=== PATIENT | female | born 1960 | race American Indian/Alaskan Native ===

== ENCOUNTER 2016-08-04 09:50 | Emergency (ER) | payer MEDICAID ==
[~2016-08-04] VITALS: Ht 165.1 cm; Wt 117.9 kg
[~2016-08-04 09:50] MED LIST: AMOX1TAB64 PO; APIX5TAB PO; ASPI-496 PO; ASPI-515 PO; CALC667C PO; CARV6.252 PO; CEFD300C2 PO; CEPH-375 PO; CLON0.2T PO; ERGO500017 PO; FELO2.5T PO; FERR325T20 PO; FURO-92 PO; FURO20TA3 PO; GABA300C10 PO; HYDR-3138 PO; HYDR-3144 PO; HYDR25TA6 PO; INSU100V10 SC; INSU100V13 SC; LINA5TAB PO; LINAGLIPTIN; LOSA25TA5 PO; METO5TAB5 PO; METR500T PO; MULT-208 PO; OMEP-110 PO; ONDA4TAB13 PO; OXYB5TAB7 PO; SIMV20TA3 PO; TRAZ50TA18 PO; UNKOWN; calcium PO; gabapentin PO
[2016-08-04] MEDS ORDERED: DEXAMETHASONE 4 MG/ML, 1ML IM ONE (11:30)
[2016-08-04] MEDS ORDERED: HYDROmorphone 1 MG/ML, 1ML IM ONE (11:30)
[2016-08-04] MEDS ORDERED: HYDROmorphone 2 MG/ML, 1ML ONE (11:42)
[2016-08-04] MEDS ORDERED: DEXAMETHASONE 4 MG/ML, 5ML ONE (11:42)
[2016-08-04 11:48] VITALS: BP 123/45
[2016-08-06] MEDS ORDERED: CARV12.52 PO (08:34)
[2016-08-06] MEDS ORDERED: SIMV20TA3 PO (08:34)
[2016-08-06] MEDS ORDERED: MULT-257 PO (08:34)
[2016-08-06] MEDS ORDERED: LINA5TAB PO (08:34)
[2016-08-06] MEDS ORDERED: POTA20PA8 PO (08:34)
[2016-08-06] MEDS ORDERED: ASPI-496 PO (08:34)
[2016-08-06] MEDS ORDERED: FERR325T20 PO (08:34)
[2016-08-06] MEDS ORDERED: GABA600T2 PO (08:34)
[2016-08-06] MEDS ORDERED: OMEP-110 PO (08:34)
[2016-08-06] MEDS ORDERED: ERGO500017 PO (08:34)
[2016-08-06] MEDS ORDERED: HYDR25TA6 PO (08:34)
[2016-08-06] MEDS ORDERED: CALC667C PO (08:34)
[2016-08-06] MEDS ORDERED: ONDA-39 PO (08:34)
[2016-08-06] MEDS ORDERED: TRAZ50TA18 PO (08:34)
[2016-08-06] MEDS ORDERED: HYDR-3138 PO (08:34)
== END 2016-08-04 12:55 | disposition home or self-care (01) ==
LOC: ED 12:18
DX: M25.511 Pain in right shoulder (principal); I48.92 Unspecified atrial flutter; I48.91 Unspecified atrial fibrillation; E66.9 Obesity, unspecified; I13.0 Hypertensive heart and chronic kidney disease with heart failure and stage 1 through stage 4 chronic kidney disease, or unspecified chronic kidney disease; N18.9 Chronic kidney disease, unspecified; K29.70 Gastritis, unspecified, without bleeding; E11.9 Type 2 diabetes mellitus without complications
CPT/HCPCS: 73030; 93005; 96372; 99284; J1100; J1170

== ENCOUNTER 2017-02-22 14:39 | Emergency (ER) | payer MEDICAID ==
[~2017-02-22] VITALS: Ht 165.1 cm; Wt 127.6 kg
[~2017-02-22 14:39] MED LIST changes: +CARV12.52 PO; -CEFD300C2 PO; +CEFD300C37 PO; +FERR325T18 PO; -FERR325T20 PO; +GABA600T2 PO; -HYDR-3138 PO; -HYDR-3144 PO; +HYDR-3237 PO; +HYDR-3245 PO; -INSU100V10 SC; +INSU100V11 SC; +MULT-257 PO; +ONDA4TAB12 PO; +POTA20PA25 PO
[2017-02-22 15:49] LABS: PATH.CAST-FLAG NOT PRESENT; SPERM-FLAG NOT PRESENT; SRC-FLAG NOT PRESENT; XTAL-FLAG NOT PRESENT; YLC-FLAG NOT PRESENT
[2017-02-22 15:58] LABS: HEMATOCRIT 31.2 % (34.6-47.8); HEMOGLOBIN 10.6 g/dL (11.7-16.4); WHITE BLOOD COUNT 7.4 x10^3/uL (3.4-10)
[2017-02-22 16:05] LABS: BLOOD UREA NITROGEN 22 mg/dL (7-18)
[2017-02-22 16:55] VITALS: BP 165/58
== END 2017-02-22 16:57 | disposition home or self-care (01) ==
LOC: ED 16:19
DX: R51 Headache (principal); E11.22 Type 2 diabetes mellitus with diabetic chronic kidney disease; I13.0 Hypertensive heart and chronic kidney disease with heart failure and stage 1 through stage 4 chronic kidney disease, or unspecified chronic kidney disease; I48.91 Unspecified atrial fibrillation; N18.4 Chronic kidney disease, stage 4 (severe); I50.9 Heart failure, unspecified; Z99.2 Dependence on renal dialysis
CPT/HCPCS: 36415; 70450; 80048; 81001; 82040; 83735; 85025; 93005; 99285

== ENCOUNTER 2017-04-11 21:25 | Inpatient (IN) | payer MEDICAID ==
[~2017-04-11] VITALS: Ht 165.1 cm; Wt 129.7 kg
[2017-04-11] MEDS ORDERED: ASPIRIN 81 MG TABLET CHEW ONE (21:56)
[2017-04-11] MEDS ORDERED: ASPIRIN 81 MG TABLET CHEW PO ONE (22:00)
[2017-04-11 22:24] LABS: HEMATOCRIT 28.2 % (34.6-47.8); HEMOGLOBIN 9.8 g/dL (11.7-16.4); WHITE BLOOD COUNT 4.9 x10^3/uL (3.4-10)
[2017-04-11 22:31] LABS: BLOOD UREA NITROGEN 44 mg/dL (7-18)
[2017-04-11 22:40] LABS: IS PT STATUS REG ER OR PRE ER? YES
[2017-04-11] MEDS ORDERED: OMNIPAQUE 350 MG/ML, 100ML BOTTLE ONE (23:39)
[2017-04-12] VITALS (11 sets, daily range): BP systolic 108–174; BP diastolic 60–83
[2017-04-12] MEDS ORDERED: ONDANSETRON 2MG/ML, 2ML IVPush PRN
[2017-04-12] MEDS ORDERED: MORPHINE SULFATE 4 MG/ML, 1ML IVPush PRN
[2017-04-12] MEDS ORDERED: ERGOCALCIFEROL 50,000 UNIT CAPSULE PO SCH (00:30)
[2017-04-12] MEDS ORDERED: DOCUSATE 100 MG CAPSULE PO PRN ×2 (00:30→20:00)
[2017-04-12] MEDS ORDERED: ACETAMINOPHEN 325 MG TABLET PO PRN (00:30)
[2017-04-12] MEDS ORDERED: hydrALAzine 20 MG/ML, 1ML IVPush PRN ×2 (00:30→20:00)
[2017-04-12] MEDS ORDERED: HYDROmorphone 1 MG/ML, 1ML ONE (00:37)
[2017-04-12] MEDS ORDERED: HYDROmorphone 2 MG/ML, 1ML IVPush STA (01:00)
[2017-04-12] MEDS: TRAZODONE 50MG TABLET PO SCH ×2 (02:39→20:52)
[2017-04-12] MEDS: HEPARIN 5,000 UNITS/ML, 1ML SQ SCH ×3 (02:39→16:07)
[2017-04-12] MEDS: INSULIN ASPART 100 UNITS/ML, PEN SQ-INSULIN SCH ×5 (03:34→20:56)
[2017-04-12 05:13] LABS: IS PT STATUS REG ER OR PRE ER? NO
[2017-04-12] MEDS: GABAPENTIN 300 MG CAPSULE PO PRN ×2 (06:21→16:48)
[2017-04-12] MEDS: NITROGLYCERIN 0.4 MG BOTTLE (25 TABS) SL PRN ×3 (06:45→06:57)
[2017-04-12] MEDS ORDERED: REGADENOSON 0.4 MG/5 ML SYRINGE ONE (07:56)
[2017-04-12] MEDS ORDERED: TEMPLATE NON-FORMULARY MED. (Linagliptin** (Tradjenta**) 5 MG) HOMEMEDPO SCH (09:00)
[2017-04-12] MEDS ORDERED: POTASSIUM CHLORIDE 20 MEQ PACKET PO SCH (09:00)
[2017-04-12] MEDS ORDERED: MULTIVITAMIN 1 TABLET PO SCH (09:00)
[2017-04-12] MEDS ORDERED: HYDROCHLOROTHIAZIDE 25 MG TABLET PO SCH (09:00)
[2017-04-12] MEDS ORDERED: ASPIRIN 81 MG TABLET EC PO SCH (09:00)
[2017-04-12] MEDS: CALCIUM ACETATE 667 MG CAPSULE PO SCH ×3 (09:11→16:48)
[2017-04-12] MEDS: CARVEDILOL 12.5 MG TABLET PO SCH ×2 (09:11→20:52)
[2017-04-12] MEDS: FERROUS SULFATE 325 MG TABLET PO SCH ×2 (09:12→16:47)
[2017-04-12 12:38] LABS: IS PT STATUS REG ER OR PRE ER? NO
== END 2017-04-12 23:03 | disposition home or self-care (01) | DRG 313 ==
LOC: ED 21:37 → EDIP 04-12 00:06 → 5SO 04-12 01:10
PROVIDERS: ADMIT Family Medicine; ATTEND Family Medicine
PROC: 5A1D70Z Performance of Urinary Filtration, Intermittent, Less than 6 Hours Per Day (ICD-10-PCS; principal; 2017-04-12)
DX: R07.89 Other chest pain (principal); I25.10 Atherosclerotic heart disease of native coronary artery without angina pectoris; I13.2 Hypertensive heart and chronic kidney disease with heart failure and with stage 5 chronic kidney disease, or end stage renal disease; D68.69 Other thrombophilia; E11.21 Type 2 diabetes mellitus with diabetic nephropathy; E11.42 Type 2 diabetes mellitus with diabetic polyneuropathy; N18.6 End stage renal disease; E11.22 Type 2 diabetes mellitus with diabetic chronic kidney disease; E87.1 Hypo-osmolality and hyponatremia; I50.32 Chronic diastolic (congestive) heart failure; Z68.41 Body mass index [BMI] 40.0-44.9, adult; I16.0 Hypertensive urgency; D50.9 Iron deficiency anemia, unspecified; D63.8 Anemia in other chronic diseases classified elsewhere; E11.65 Type 2 diabetes mellitus with hyperglycemia; E66.01 Morbid (severe) obesity due to excess calories; I27.20 Pulmonary hypertension, unspecified; I48.0 Paroxysmal atrial fibrillation; I87.8 Other specified disorders of veins; K76.0 Fatty (change of) liver, not elsewhere classified; I25.2 Old myocardial infarction; Z79.4 Long term (current) use of insulin; Z79.82 Long term (current) use of aspirin; Z83.3 Family history of diabetes mellitus; Z86.73 Personal history of transient ischemic attack (TIA), and cerebral infarction without residual deficits; Z95.5 Presence of coronary angioplasty implant and graft; Z99.2 Dependence on renal dialysis; Z99.3 Dependence on wheelchair; Z90.49 Acquired absence of other specified parts of digestive tract
CPT/HCPCS: 36415; 71010; 71275; 78452; 80048; 82040; 82800; 82947; 82962; 83036; 83880; 84484; 85025; 85379; 85610; 93005; 93017; 99285; C8929; J1644; J1815; J2785; Q9967; A9502; C9898

== ENCOUNTER → 2017-04-28 | Outpatient (CLI) | payer MEDICAID | END | disposition home or self-care (01) | LOC: RAD 16:08 | PROVIDERS: ATTEND Surgery | DX: I51.7 Cardiomegaly (principal) | CPT/HCPCS: 71020 ==

== ENCOUNTER 2017-05-30 23:38 | Emergency (ER) | payer MEDICAID ==
[~2017-05-30] VITALS: Ht 165.1 cm; Wt 124.0 kg
[2017-05-31 00:15] LABS: RAPID INFLUENZA A POSITIVE (Negative); RAPID INFLUENZA B Negative (Negative)
[2017-05-31 00:20] LABS: BASOPHILS # (AUTO) 0.01 x10^3/uL (0-0.1); BASOPHILS % (AUTO) 0 % (0-1); EOSINOPHILS # (AUTO) 0.65 x10^3/uL (0-0.4); EOSINOPHILS % (AUTO) 12 % (1-7); LYMPHOCYTES # (AUTO) 0.84 x10^3/uL (1-3.4); LYMPHOCYTES % (AUTO) 16 % (22-44); MD NO; MEAN CORPUSCULAR HGB CONC 33.3 g/dL (32.4-35.8); MEAN CORPUSCULAR VOLUME 93.1 fL (80-100); MEAN PLATELET VOLUME 9.2 fL (7.4-10.4); MONOCYTES # (AUTO) 0.51 x10^3/uL (0.2-0.8); MONOCYTES % (AUTO) 10 % (2-9); NEUTROPHILS # (AUTO) 3.42 x10^3/uL (1.8-6.8); NEUTROPHILS % (AUTO) 63 % (42-75); PLATELET COUNT 165 x10^3/uL (130-400); RED BLOOD COUNT 3.59 x10^6/uL (3.82-5.3); RED CELL DISTRIBUTION WIDTH 16.4 % (9.6-15.2)
[2017-05-31 00:30] LABS: ALBUMIN 3.1 g/dL (3.4-5.0); ANION GAP 9 mmol/L (5-15); CALCIUM 8.4 mg/dL (8.5-10.1); CHLORIDE 95 mmol/L (98-107); CREATININE 5.69 mg/dL (0.55-1.02)
[2017-05-31 00:33] LABS: TROPONIN I < 0.015 ng/mL (0.000-0.045)
[2017-05-31] MEDS ORDERED: ACETAMINOPHEN 500 MG TABLET ONE (00:56)
[2017-05-31] MEDS ORDERED: ACETAMINOPHEN 500 MG TABLET PO ONE (01:00)
[2017-05-31 01:02] VITALS: BP 168/92
== END 2017-05-31 01:04 | disposition home or self-care (01) ==
LOC: ED 23:59
DX: J09.X2 Influenza due to identified novel influenza A virus with other respiratory manifestations (principal); E11.65 Type 2 diabetes mellitus with hyperglycemia; I48.91 Unspecified atrial fibrillation; I50.9 Heart failure, unspecified; E66.9 Obesity, unspecified; E87.6 Hypokalemia; E11.22 Type 2 diabetes mellitus with diabetic chronic kidney disease; I12.0 Hypertensive chronic kidney disease with stage 5 chronic kidney disease or end stage renal disease; N18.6 End stage renal disease; N17.9 Acute kidney failure, unspecified; Z99.2 Dependence on renal dialysis; Z90.49 Acquired absence of other specified parts of digestive tract
CPT/HCPCS: 36415; 71046; 80048; 82040; 84484; 85025; 87400; 93005; 99285

== ENCOUNTER 2017-06-19 12:31 | Emergency (ER) | payer MEDICAID ==
[~2017-06-19] VITALS: Ht 167.6 cm; Wt 125.0 kg
[2017-06-19 12:32] VITALS: BP 133/78
[2017-06-19] MEDS ORDERED: ONDANSETRON ODT 4 MG PO ONE (13:00)
[2017-06-19] MEDS ORDERED: HYDROmorphone 1 MG/ML, 1ML IM ONE (13:00)
[2017-06-19 13:24] LABS: MICROSCOPIC AUTO
[2017-06-19] MEDS ORDERED: HYDROmorphone 1 MG/ML, 1ML ONE (13:28)
[2017-06-19] MEDS ORDERED: ONDANSETRON ODT 4 MG ONE (13:28)
[2017-06-19 13:29] LABS: CULTURE INDICATED? YES
[2017-06-19 13:41] LABS: BASOPHILS # (AUTO) 0.02 x10^3/uL (0-0.1); BASOPHILS % (AUTO) 0 % (0-1); EOSINOPHILS # (AUTO) 0.38 x10^3/uL (0-0.4); EOSINOPHILS % (AUTO) 6 % (1-7); LYMPHOCYTES # (AUTO) 0.72 x10^3/uL (1-3.4); LYMPHOCYTES % (AUTO) 11 % (22-44); MD NO; MEAN CORPUSCULAR HEMOGLOBIN 30.5 pg (27.0-34.8); MEAN CORPUSCULAR HGB CONC 33.1 g/dL (32.4-35.8); MEAN CORPUSCULAR VOLUME 92.2 fL (80-100); MEAN PLATELET VOLUME 10.6 fL (7.4-10.4); MONOCYTES # (AUTO) 0.43 x10^3/uL (0.2-0.8); MONOCYTES % (AUTO) 7 % (2-9); NEUTROPHILS # (AUTO) 4.74 x10^3/uL (1.8-6.8); NEUTROPHILS % (AUTO) 75 % (42-75); PLATELET COUNT 137 x10^3/uL (130-400); RED BLOOD COUNT 3.32 x10^6/uL (3.82-5.3); RED CELL DISTRIBUTION WIDTH 15.2 % (9.6-15.2)
[2017-06-19 13:48] LABS: ANION GAP 12 mmol/L (5-15); CHLORIDE 93 mmol/L (98-107); CREATININE 7.25 mg/dL (0.55-1.02)
[2017-06-19] MEDS ORDERED: HYDROmorphone 2 MG/ML, 1ML ONE (15:40)
== END 2017-06-19 15:09 | disposition home or self-care (01) ==
LOC: ED 14:58
DX: E11.22 Type 2 diabetes mellitus with diabetic chronic kidney disease (principal); I13.0 Hypertensive heart and chronic kidney disease with heart failure and stage 1 through stage 4 chronic kidney disease, or unspecified chronic kidney disease; N18.9 Chronic kidney disease, unspecified; I50.9 Heart failure, unspecified; I48.91 Unspecified atrial fibrillation; E66.01 Morbid (severe) obesity due to excess calories; N30.00 Acute cystitis without hematuria; Z68.41 Body mass index [BMI] 40.0-44.9, adult
CPT/HCPCS: 36415; 72110; 80048; 81001; 82040; 85025; 87086; 96372; 99285; J1170; Q0162

== ENCOUNTER 2017-07-23 15:26 | Inpatient (IN) | payer MEDICAID ==
[~2017-07-23] VITALS: Ht 165.1 cm; Wt 141.0 kg
[2017-07-23 16:13] LABS: BASOPHILS # (AUTO) 0.01 x10^3/uL (0-0.1); BASOPHILS % (AUTO) 0 % (0-1); EOSINOPHILS # (AUTO) 0.04 x10^3/uL (0-0.4); EOSINOPHILS % (AUTO) 1 % (1-7); LYMPHOCYTES # (AUTO) 0.68 x10^3/uL (1-3.4); LYMPHOCYTES % (AUTO) 11 % (22-44); MD NO; MEAN CORPUSCULAR HEMOGLOBIN 30.1 pg (27.0-34.8); MEAN CORPUSCULAR HGB CONC 33.4 g/dL (32.4-35.8); MEAN CORPUSCULAR VOLUME 90.2 fL (80-100); MEAN PLATELET VOLUME 9.9 fL (7.4-10.4); MONOCYTES # (AUTO) 0.46 x10^3/uL (0.2-0.8); MONOCYTES % (AUTO) 7 % (2-9); NEUTROPHILS # (AUTO) 5.28 x10^3/uL (1.8-6.8); NEUTROPHILS % (AUTO) 82 % (42-75); PLATELET COUNT 147 x10^3/uL (130-400); RED BLOOD COUNT 3.31 x10^6/uL (3.82-5.3)
[2017-07-23 16:23] LABS: INTERNATIONAL NORMALIZED RATIO 1.03 (0.93-1.1); PROTHROMBIN TIME 10.7 Seconds (9.6-11.5)
[2017-07-23 16:33] LABS: ANION GAP 13 mmol/L (5-15); CALCIUM 7.8 mg/dL (8.5-10.1); CHLORIDE 80 mmol/L (98-107)
[2017-07-23] MEDS ORDERED: SODIUM CHLORIDE 0.9% 1,000ML IVBOLUS ONE (17:30)
[2017-07-23] MEDS ORDERED: INSULIN REGULAR 100 UNITS/ML, 3ML VIAL IV ONE (17:30)
[2017-07-23] MEDS ORDERED: INSULIN REGULAR 100 UNITS/ML, 3ML VIAL ONE ×2 (17:36→19:15)
[2017-07-23 18:02] LABS: ACETONE, SERUM Trace (10mg/dL) mg/dL (Negative)
[2017-07-23 18:24] LABS: MICROSCOPIC INDICATED
[2017-07-23 18:32] LABS: CULTURE INDICATED? NO
[2017-07-23] MEDS ORDERED: MORPHINE SULFATE 4 MG/ML, 1ML ONE (18:53)
[2017-07-23] MEDS: GABAPENTIN 300 MG CAPSULE PO SCH ×2 (19:00→21:55)
[2017-07-23] MEDS ORDERED: HYDROcodone/APAP 10/325 MG TABLET ONE (19:02)
[2017-07-23] MEDS ORDERED: HYDROcodone/APAP 10/325 MG TABLET PO ONE (19:30)
[2017-07-23] MEDS ORDERED: INSULIN REGULAR 100 UNITS/ML, 3ML VIAL IVPush ONE (19:30)
[2017-07-23] MEDS ORDERED: SODIUM CHLORIDE 0.9% 1,000 ML IV SCH (20:31)
[2017-07-23] MEDS ORDERED: DOCUSATE 100 MG CAPSULE PO PRN (21:00)
[2017-07-23] MEDS ORDERED: ONDANSETRON ODT 4 MG PO PRN (21:00)
[2017-07-23] MEDS ORDERED: hydrALAzine 20 MG/ML, 1ML IVPush PRN (21:00)
[2017-07-23] MEDS ORDERED: INSULIN LISPRO 100 UNITS/ML, PEN SQ-INSULIN SCH (21:30)
[2017-07-23 21:49] LABS: ANION GAP 13 mmol/L (5-15); CALCIUM 7.8 mg/dL (8.5-10.1); CHLORIDE 85 mmol/L (98-107); CREATININE 7.72 mg/dL (0.55-1.02)
[2017-07-23 21:51] VITALS: BP 125/57
[2017-07-23 21:53] LABS: TROPONIN I < 0.015 ng/mL (0.000-0.045)
[2017-07-23] MEDS: FERROUS SULFATE 325 MG TABLET PO SCH (21:55)
[2017-07-23] MEDS: CARVEDILOL 12.5 MG TABLET PO SCH (21:55)
[2017-07-23] MEDS: TRAZODONE 50MG TABLET PO SCH (21:55)
[2017-07-23 22:04] VITALS: BP 125/57
[2017-07-23] MEDS ORDERED: INSULIN LISPRO 100 UNITS/ML, PEN SQ-INSULIN ONE (23:00)
[2017-07-24 01:47] VITALS: BP 128/62
[2017-07-24] MEDS: INSULIN LISPRO 100 UNITS/ML, PEN SQ-INSULIN SCH ×6 (02:19→23:00)
[2017-07-24 04:09] LABS: ANION GAP 11 mmol/L (5-15); CALCIUM 7.7 mg/dL (8.5-10.1); CHLORIDE 85 mmol/L (98-107); CREATININE 7.87 mg/dL (0.55-1.02); TROPONIN I < 0.015 ng/mL (0.000-0.045)
[2017-07-24] MEDS: HYDROcodone/APAP 10/325 MG TABLET PO PRN ×2 (04:58→20:50)
[2017-07-24 06:47] VITALS: BP 91/55
[2017-07-24] MEDS: CARVEDILOL 12.5 MG TABLET PO SCH ×2 (08:14→20:50)
[2017-07-24] MEDS: FERROUS SULFATE 325 MG TABLET PO SCH ×2 (08:30→17:05)
[2017-07-24] MEDS: GABAPENTIN 300 MG CAPSULE PO SCH ×3 (08:31→20:50)
[2017-07-24 09:12] LABS: ANION GAP 11 mmol/L (5-15); CALCIUM 7.8 mg/dL (8.5-10.1); CHLORIDE 86 mmol/L (98-107)
[2017-07-24 12:30] VITALS: BP 106/59
[2017-07-24 13:55] LABS: ANION GAP 9 mmol/L (5-15); CHLORIDE 88 mmol/L (98-107)
[2017-07-24 13:56] LABS: CREATININE 5.11 mg/dL (0.55-1.02)
[2017-07-24 19:55] VITALS: BP 115/56
[2017-07-24] MEDS: TRAZODONE 50MG TABLET PO SCH (20:50)
[2017-07-25 02:00] VITALS: BP 116/68
[2017-07-25] MEDS ORDERED: INSULIN LISPRO 100 UNITS/ML, PEN SQ-INSULIN SCH (03:00)
[2017-07-25] MEDS: INSULIN LISPRO 100 UNITS/ML, PEN SQ-INSULIN SCH ×6 (03:59→23:00)
[2017-07-25 05:36] LABS: CHLORIDE 87 mmol/L (98-107)
[2017-07-25 05:38] LABS: BASOPHILS # (AUTO) 0.02 x10^3/uL (0-0.1); BASOPHILS % (AUTO) 0 % (0-1); EOSINOPHILS # (AUTO) 0.27 x10^3/uL (0-0.4); EOSINOPHILS % (AUTO) 5 % (1-7); LYMPHOCYTES # (AUTO) 1.11 x10^3/uL (1-3.4); LYMPHOCYTES % (AUTO) 21 % (22-44); MD NO; MEAN CORPUSCULAR HEMOGLOBIN 30.8 pg (27.0-34.8); MEAN CORPUSCULAR HGB CONC 34.2 g/dL (32.4-35.8); MEAN PLATELET VOLUME 9.8 fL (7.4-10.4); MONOCYTES # (AUTO) 0.51 x10^3/uL (0.2-0.8); MONOCYTES % (AUTO) 10 % (2-9); NEUTROPHILS # (AUTO) 3.31 x10^3/uL (1.8-6.8); NEUTROPHILS % (AUTO) 64 % (42-75); PLATELET COUNT 135 x10^3/uL (130-400); RED BLOOD COUNT 3.15 x10^6/uL (3.82-5.3); RED CELL DISTRIBUTION WIDTH 15.6 % (9.6-15.2)
[2017-07-25 05:42] LABS: ALBUMIN 2.6 g/dL (3.4-5.0); ALKALINE PHOSPHATASE 172 U/L (45-117); ANION GAP 11 mmol/L (5-15); BILIRUBIN,TOTAL 0.8 mg/dL (0.2-1.0); CALCIUM 7.7 mg/dL (8.5-10.1); CREATININE 6.78 mg/dL (0.55-1.02); TOTAL PROTEIN 7.6 g/dL (6.4-8.2)
[2017-07-25 05:47] LABS: ALANINE AMINOTRANSFERASE < 6 U/L (12-78)
[2017-07-25] MEDS: HEPARIN 5,000 UNITS/ML, 1ML SQ SCH ×2 (08:29→20:24)
[2017-07-25] MEDS: FERROUS SULFATE 325 MG TABLET PO SCH ×2 (08:29→18:13)
[2017-07-25] MEDS: GABAPENTIN 300 MG CAPSULE PO SCH ×3 (08:29→20:24)
[2017-07-25 09:30] VITALS: BP 132/80
[2017-07-25] MEDS: CARVEDILOL 12.5 MG TABLET PO SCH ×2 (09:58→20:24)
[2017-07-25 13:38] VITALS: BP 128/54
[2017-07-25] MEDS: HYDROcodone/APAP 10/325 MG TABLET PO PRN ×2 (15:33→23:45)
[2017-07-25 20:00] VITALS: BP 138/68
[2017-07-25] MEDS: TRAZODONE 50MG TABLET PO SCH (20:24)
[2017-07-25] MEDS: ACETAMINOPHEN 325 MG TABLET PO PRN (20:24)
[2017-07-26] MEDS: TEMAZEPAM 15 MG CAPSULE PO PRN ×2 (00:05→21:59)
[2017-07-26 02:00] VITALS: BP 114/65
[2017-07-26] MEDS: INSULIN LISPRO 100 UNITS/ML, PEN SQ-INSULIN SCH ×5 (03:19→21:46)
[2017-07-26 05:29] LABS: MEAN CORPUSCULAR HEMOGLOBIN 30.3 pg (27.0-34.8); MEAN CORPUSCULAR HGB CONC 34.1 g/dL (32.4-35.8); MEAN PLATELET VOLUME 9.9 fL (7.4-10.4); PLATELET COUNT 127 x10^3/uL (130-400); RED BLOOD COUNT 3.17 x10^6/uL (3.82-5.3); RED CELL DISTRIBUTION WIDTH 15.7 % (9.6-15.2)
[2017-07-26 05:32] LABS: ALBUMIN 2.4 g/dL (3.4-5.0); ANION GAP 10 mmol/L (5-15); CALCIUM 7.9 mg/dL (8.5-10.1); CHLORIDE 90 mmol/L (98-107)
[2017-07-26 05:36] LABS: ALKALINE PHOSPHATASE 190 U/L (45-117); BILIRUBIN,TOTAL 0.9 mg/dL (0.2-1.0); CREATININE 4.96 mg/dL (0.55-1.02); TOTAL PROTEIN 7.4 g/dL (6.4-8.2)
[2017-07-26 05:37] LABS: ALANINE AMINOTRANSFERASE < 6 U/L (12-78)
[2017-07-26 06:15] LABS: BASOPHILS # (AUTO) 0.02 x10^3/uL (0-0.1); BASOPHILS % (AUTO) 1 % (0-1); EOSINOPHILS # (AUTO) 0.37 x10^3/uL (0-0.4); EOSINOPHILS % (AUTO) 8 % (1-7); LYMPHOCYTES # (AUTO) 0.91 x10^3/uL (1-3.4); LYMPHOCYTES % (AUTO) 20 % (22-44); MD MORPH REVIEW ONLY; MONOCYTES # (AUTO) 0.46 x10^3/uL (0.2-0.8); MONOCYTES % (AUTO) 10 % (2-9); NEUTROPHILS # (AUTO) 2.79 x10^3/uL (1.8-6.8); NEUTROPHILS % (AUTO) 61 % (42-75)
[2017-07-26 06:16] LABS: ANISOCYTOSIS 1+; MICROCYTOSIS 1+; POLYCHROMASIA 1+
[2017-07-26 06:17] LABS: <PLATELET ESTIMATE> ADEQUATE; <PLT MORPHOLOGY> NORMAL PLT MORPH
[2017-07-26] MEDS: HEPARIN 5,000 UNITS/ML, 1ML SQ SCH ×2 (08:52→21:45)
[2017-07-26] MEDS: GABAPENTIN 300 MG CAPSULE PO SCH ×3 (08:53→21:44)
[2017-07-26] MEDS: FERROUS SULFATE 325 MG TABLET PO SCH ×2 (08:53→16:14)
[2017-07-26 08:54] VITALS: BP 142/77
[2017-07-26] MEDS: HYDROcodone/APAP 10/325 MG TABLET PO PRN ×2 (09:00→22:00)
[2017-07-26] MEDS: CARVEDILOL 12.5 MG TABLET PO SCH ×2 (14:02→21:44)
[2017-07-26 14:04] VITALS: BP 136/77
[2017-07-26 19:05] VITALS: BP 116/65
[2017-07-26] MEDS: TRAZODONE 50MG TABLET PO SCH (21:44)
[2017-07-26] MEDS: INSULIN GLARGINE 100 UNITS/ML, PEN SQ-INSULIN SCH (21:46)
[2017-07-27 01:34] VITALS: BP 124/61
[2017-07-27 05:20] LABS: BASOPHILS # (AUTO) 0.02 x10^3/uL (0-0.1); BASOPHILS % (AUTO) 0 % (0-1); EOSINOPHILS # (AUTO) 0.39 x10^3/uL (0-0.4); EOSINOPHILS % (AUTO) 9 % (1-7); LYMPHOCYTES # (AUTO) 1.11 x10^3/uL (1-3.4); LYMPHOCYTES % (AUTO) 24 % (22-44); MD NO; MEAN CORPUSCULAR HEMOGLOBIN 30.2 pg (27.0-34.8); MEAN CORPUSCULAR HGB CONC 33.6 g/dL (32.4-35.8); MEAN PLATELET VOLUME 9.4 fL (7.4-10.4); MONOCYTES # (AUTO) 0.48 x10^3/uL (0.2-0.8); MONOCYTES % (AUTO) 11 % (2-9); NEUTROPHILS # (AUTO) 2.57 x10^3/uL (1.8-6.8); NEUTROPHILS % (AUTO) 56 % (42-75); PLATELET COUNT 159 x10^3/uL (130-400); RED BLOOD COUNT 3.37 x10^6/uL (3.82-5.3); RED CELL DISTRIBUTION WIDTH 15.7 % (9.6-15.2)
[2017-07-27 05:26] LABS: ALBUMIN 2.6 g/dL (3.4-5.0); ANION GAP 8 mmol/L (5-15); CALCIUM 8.3 mg/dL (8.5-10.1); CHLORIDE 91 mmol/L (98-107); CREATININE 4.57 mg/dL (0.55-1.02); IRON LEVEL 44 mcg/dL (50-170)
[2017-07-27 05:29] LABS: % IRON SATURATION 14 % (20-55); ALKALINE PHOSPHATASE 218 U/L (45-117); BILIRUBIN,TOTAL 0.7 mg/dL (0.2-1.0); TOTAL IRON BINDING CAPACITY 304 mcg/dL (250-450); TOTAL PROTEIN 7.9 g/dL (6.4-8.2)
[2017-07-27 05:31] LABS: ALANINE AMINOTRANSFERASE < 6 U/L (12-78)
[2017-07-27 07:16] VITALS: BP 127/76
[2017-07-27] MEDS: FERROUS SULFATE 325 MG TABLET PO SCH (07:30)
[2017-07-27] MEDS: INSULIN LISPRO 100 UNITS/ML, PEN SQ-INSULIN SCH ×4 (07:31→21:05)
[2017-07-27] MEDS: HYDROcodone/APAP 10/325 MG TABLET PO PRN ×2 (07:35→16:45)
[2017-07-27] MEDS: GABAPENTIN 300 MG CAPSULE PO SCH ×3 (10:27→21:04)
[2017-07-27] MEDS: CARVEDILOL 12.5 MG TABLET PO SCH ×2 (12:08→21:03)
[2017-07-27] MEDS: HEPARIN 5,000 UNITS/ML, 1ML SQ SCH ×2 (12:09→21:04)
[2017-07-27] MEDS: IRON SUCROSE COMPLEX 100MG/5ML IV SCH (12:09)
[2017-07-27] MEDS: ACETAMINOPHEN 325 MG TABLET PO PRN ×2 (12:33→21:03)
[2017-07-27 13:32] VITALS: BP 97/62
[2017-07-27 20:04] VITALS: BP 103/63
[2017-07-27] MEDS: TRAZODONE 50MG TABLET PO SCH (21:04)
[2017-07-27] MEDS: INSULIN GLARGINE 100 UNITS/ML, PEN SQ-INSULIN SCH (21:05)
[2017-07-27] MEDS: TEMAZEPAM 15 MG CAPSULE PO PRN (21:05)
[2017-07-28] MEDS: HYDROcodone/APAP 10/325 MG TABLET PO PRN (00:50)
[2017-07-28] MEDS: ACETAMINOPHEN 325 MG TABLET PO PRN ×2 (01:44→08:44)
[2017-07-28 03:05] VITALS: BP 86/52
[2017-07-28 07:42] VITALS: BP 144/65
[2017-07-28] MEDS: GABAPENTIN 300 MG CAPSULE PO SCH (08:44)
[2017-07-28] MEDS: HEPARIN 5,000 UNITS/ML, 1ML SQ SCH (08:47)
[2017-07-28] MEDS: IRON SUCROSE COMPLEX 100MG/5ML IV SCH (08:47)
[2017-07-28] MEDS: INSULIN LISPRO 100 UNITS/ML, PEN SQ-INSULIN SCH (08:48)
[2017-07-28] MEDS: CARVEDILOL 12.5 MG TABLET PO SCH (09:12)
== END 2017-07-28 13:19 | disposition home or self-care (01) | DRG 637 ==
LOC: ED 17:33 → EDIP 18:10 → 4WST 20:10
PROVIDERS: ADMIT Hospitalist; ATTEND Hospitalist
PROC: 0T9B70Z Drainage of Bladder with Drainage Device, Via Natural or Artificial Opening (ICD-10-PCS; 2017-07-23)
PROC: 5A1D70Z Performance of Urinary Filtration, Intermittent, Less than 6 Hours Per Day (ICD-10-PCS; principal; 2017-07-24)
PROC: 5A1D70Z Performance of Urinary Filtration, Intermittent, Less than 6 Hours Per Day (ICD-10-PCS; 2017-07-25)
PROC: 5A1D70Z Performance of Urinary Filtration, Intermittent, Less than 6 Hours Per Day (ICD-10-PCS; 2017-07-26)
PROC: 5A1D70Z Performance of Urinary Filtration, Intermittent, Less than 6 Hours Per Day (ICD-10-PCS; 2017-07-27)
DX: E11.00 Type 2 diabetes mellitus with hyperosmolarity without nonketotic hyperglycemic-hyperosmolar coma (NKHHC) (principal); N18.6 End stage renal disease; I13.2 Hypertensive heart and chronic kidney disease with heart failure and with stage 5 chronic kidney disease, or end stage renal disease; I95.9 Hypotension, unspecified; E11.21 Type 2 diabetes mellitus with diabetic nephropathy; E66.01 Morbid (severe) obesity due to excess calories; E11.22 Type 2 diabetes mellitus with diabetic chronic kidney disease; E11.42 Type 2 diabetes mellitus with diabetic polyneuropathy; I48.0 Paroxysmal atrial fibrillation; E87.0 Hyperosmolality and hypernatremia; I48.92 Unspecified atrial flutter; E87.1 Hypo-osmolality and hyponatremia; Z68.43 Body mass index [BMI] 50.0-59.9, adult; D63.1 Anemia in chronic kidney disease; I50.9 Heart failure, unspecified; I87.8 Other specified disorders of veins; K76.0 Fatty (change of) liver, not elsewhere classified; Z79.4 Long term (current) use of insulin; Z79.82 Long term (current) use of aspirin; Z83.3 Family history of diabetes mellitus; Z87.440 Personal history of urinary (tract) infections; Z95.5 Presence of coronary angioplasty implant and graft; Z99.2 Dependence on renal dialysis; Z99.3 Dependence on wheelchair; G43.109 Migraine with aura, not intractable, without status migrainosus; G89.29 Other chronic pain
CPT/HCPCS: 36415; 71045; 80048; 80053; 81001; 82010; 82150; 82306; 82728; 82800; 82962; 83540; 83550; 83690; 83735; 83930; 84100; 84484; 85025; 85610; 85730; 86704; 86706; 86803; 87340; 93005; 96361; 96374; 96376; J1644; J1756; J1815; J7030

== ENCOUNTER 2017-08-02 18:44 | Inpatient (IN) | payer MEDICAID ==
[~2017-08-02] VITALS: Ht 165.1 cm; Wt 142.5 kg
[2017-08-02] MEDS ORDERED: SODIUM CHLORIDE FLUSH 10ML SYR IVF ONE (20:00)
[2017-08-02 20:29] LABS: BASOPHILS # (AUTO) 0.01 x10^3/uL (0-0.1); BASOPHILS % (AUTO) 0 % (0-1); EOSINOPHILS # (AUTO) 0.37 x10^3/uL (0-0.4); EOSINOPHILS % (AUTO) 7 % (1-7); LYMPHOCYTES # (AUTO) 0.55 x10^3/uL (1-3.4); LYMPHOCYTES % (AUTO) 10 % (22-44); MD NO; MEAN CORPUSCULAR HEMOGLOBIN 29.7 pg (27.0-34.8); MEAN CORPUSCULAR HGB CONC 33.2 g/dL (32.4-35.8); MEAN CORPUSCULAR VOLUME 89.4 fL (80-100); MONOCYTES % (AUTO) 7 % (2-9); NEUTROPHILS # (AUTO) 4.33 x10^3/uL (1.8-6.8); NEUTROPHILS % (AUTO) 76 % (42-75); PLATELET COUNT 187 x10^3/uL (130-400); RED BLOOD COUNT 3.17 x10^6/uL (3.82-5.3); RED CELL DISTRIBUTION WIDTH 15.5 % (9.6-15.2)
[2017-08-02 20:37] LABS: INTERNATIONAL NORMALIZED RATIO 0.98 (0.93-1.1); PROTHROMBIN TIME 10.2 Seconds (9.6-11.5)
[2017-08-02 21:28] LABS: ALANINE AMINOTRANSFERASE 12 U/L (12-78); ALBUMIN 2.8 g/dL (3.4-5.0); ANION GAP 11 mmol/L (5-15); CALCIUM 7.6 mg/dL (8.5-10.1); CHLORIDE 90 mmol/L (98-107); CREATININE 8.63 mg/dL (0.55-1.02)
[2017-08-02 21:32] LABS: ALKALINE PHOSPHATASE 306 U/L (45-117); BILIRUBIN,TOTAL 0.9 mg/dL (0.2-1.0); TOTAL PROTEIN 8.3 g/dL (6.4-8.2); TROPONIN I < 0.015 ng/mL (0.000-0.045)
[2017-08-02] MEDS ORDERED: INSULIN REGULAR 100 UNITS/ML, 3ML VIAL IVPush ONE (22:00)
[2017-08-02] MEDS ORDERED: DEXTROSE 50%, 50ML SYRINGE IVPush ONE (22:00)
[2017-08-02 22:42] VITALS: BP 132/57
[2017-08-02] MEDS ORDERED: ONDANSETRON 2MG/ML, 2ML IVPush PRN (23:30)
[2017-08-02] MEDS ORDERED: ERGOCALCIFEROL 50,000 UNIT CAPSULE PO SCH (23:30)
[2017-08-02] MEDS ORDERED: POLYETHYLENE GLYCOL 17 GM PACKET PO PRN (23:30)
[2017-08-02] MEDS ORDERED: hydrALAzine 20 MG/ML, 1ML IVPush PRN (23:30)
[2017-08-02] MEDS ORDERED: BISACODYL 10 MG SUPP PR PRN (23:30)
[2017-08-02] MEDS ORDERED: ACETAMINOPHEN 325 MG TABLET PO PRN (23:30)
[2017-08-02] MEDS ORDERED: morphine SULFATE 10 MG/ML, 1ML IVPush PRN (23:30)
[2017-08-02 23:44] LABS: HEMOGLOBIN A1C 10.8 % (4.2-6.3)
[2017-08-02 23:45] LABS: FREE T4 (FREE THYROXINE) 1.22 ng/dL (0.76-1.46); THYROID STIMULATING HORMONE 4.33 mIU/L (0.358-3.740)
[2017-08-03 01:44] VITALS: BP 142/83
[2017-08-03] MEDS: HEPARIN 5,000 UNITS/ML, 1ML SQ SCH ×4 (02:08→22:46)
[2017-08-03 06:02] LABS: ANION GAP 11 mmol/L (5-15); CHLORIDE 93 mmol/L (98-107)
[2017-08-03 06:07] LABS: ALANINE AMINOTRANSFERASE 11 U/L (12-78); ALBUMIN 2.7 g/dL (3.4-5.0); ALKALINE PHOSPHATASE 269 U/L (45-117); BILIRUBIN,TOTAL 0.8 mg/dL (0.2-1.0); CHOLESTEROL, TOTAL 114 mg/dL (140-239); CREATININE 7.03 mg/dL (0.55-1.02); HDL CHOLESTEROL (DIRECT) 35 mg/dL (40-60); TOTAL PROTEIN 7.9 g/dL (6.4-8.2); TRIGLYCERIDES 120 mg/dL (50-200); VLDL CHOLESTEROL 24 mg/dL (0-25)
[2017-08-03 06:08] LABS: CHOL/HDL RATIO 3.3; HDL CHOL % 31 % (28-40); LDL CHOLESTEROL,CALCULATED 55 mg/dL (54-169); LDL/HDL RATIO 1.6 (0.5-3.0)
[2017-08-03] MEDS: GABAPENTIN 300 MG CAPSULE PO PRN ×2 (06:27→20:39)
[2017-08-03 06:46] LABS: BASOPHILS # (AUTO) 0.02 x10^3/uL (0-0.1); BASOPHILS % (AUTO) 1 % (0-1); EOSINOPHILS # (AUTO) 0.38 x10^3/uL (0-0.4); EOSINOPHILS % (AUTO) 9 % (1-7); LYMPHOCYTES # (AUTO) 0.69 x10^3/uL (1-3.4); LYMPHOCYTES % (AUTO) 16 % (22-44); MD NO; MEAN CORPUSCULAR HEMOGLOBIN 30.7 pg (27.0-34.8); MEAN CORPUSCULAR HGB CONC 34.8 g/dL (32.4-35.8); MEAN CORPUSCULAR VOLUME 88.3 fL (80-100); MEAN PLATELET VOLUME 8.8 fL (7.4-10.4); MONOCYTES # (AUTO) 0.41 x10^3/uL (0.2-0.8); MONOCYTES % (AUTO) 10 % (2-9); NEUTROPHILS # (AUTO) 2.72 x10^3/uL (1.8-6.8); NEUTROPHILS % (AUTO) 64 % (42-75); PLATELET COUNT 142 x10^3/uL (130-400); RED BLOOD COUNT 2.92 x10^6/uL (3.82-5.3); RED CELL DISTRIBUTION WIDTH 15.7 % (9.6-15.2)
[2017-08-03] MEDS: INSULIN LISPRO 100 UNITS/ML, PEN SQ-INSULIN SCH ×4 (07:00→21:26)
[2017-08-03 07:02] VITALS: BP 146/80
[2017-08-03] MEDS: CARVEDILOL 12.5 MG TABLET PO SCH ×2 (08:09→20:40)
[2017-08-03] MEDS: FERROUS SULFATE 325 MG TABLET PO SCH ×2 (08:09→17:55)
[2017-08-03] MEDS: ASPIRIN 81 MG TABLET EC PO SCH (08:09)
[2017-08-03] MEDS: MULTIVITAMIN 1 TABLET PO SCH (08:09)
[2017-08-03] MEDS: CALCIUM ACETATE 667 MG CAPSULE PO SCH ×3 (08:09→17:55)
[2017-08-03] MEDS: SENNA/DOCUSATE TABLET PO SCH (08:20)
[2017-08-03] MEDS: TEMPLATE NON-FORMULARY MED. (Linagliptin** (Tradjenta**) 5 MG) HOMEMEDPO SCH (08:20)
[2017-08-03 12:39] VITALS: BP 140/78
[2017-08-03] MEDS ORDERED: ONDANSETRON ODT 4 MG ONE (14:30)
[2017-08-03 19:53] VITALS: BP 125/76
[2017-08-03] MEDS: TRAZODONE 50MG TABLET PO SCH (20:40)
[2017-08-04 00:18] VITALS: BP 138/82
[2017-08-04 00:55] LABS: CULTURE INDICATED? YES; MICROSCOPIC INDICATED
[2017-08-04] MEDS: CEFTRIAXONE PMX 1GM/50ML 50 ML IV SCH (03:30)
[2017-08-04 05:48] LABS: BASOPHILS # (AUTO) 0.05 x10^3/uL (0-0.1); BASOPHILS % (AUTO) 1 % (0-1); EOSINOPHILS # (AUTO) 0.33 x10^3/uL (0-0.4); EOSINOPHILS % (AUTO) 10 % (1-7); LYMPHOCYTES # (AUTO) 0.68 x10^3/uL (1-3.4); LYMPHOCYTES % (AUTO) 20 % (22-44); MD NO; MEAN CORPUSCULAR HEMOGLOBIN 31.2 pg (27.0-34.8); MEAN CORPUSCULAR HGB CONC 34.6 g/dL (32.4-35.8); MEAN CORPUSCULAR VOLUME 90.2 fL (80-100); MEAN PLATELET VOLUME 8.6 fL (7.4-10.4); MONOCYTES # (AUTO) 0.45 x10^3/uL (0.2-0.8); MONOCYTES % (AUTO) 13 % (2-9); NEUTROPHILS # (AUTO) 1.93 x10^3/uL (1.8-6.8); NEUTROPHILS % (AUTO) 56 % (42-75); PLATELET COUNT 170 x10^3/uL (130-400); RED BLOOD COUNT 2.89 x10^6/uL (3.82-5.3); RED CELL DISTRIBUTION WIDTH 16.1 % (9.6-15.2)
[2017-08-04 05:51] LABS: ANION GAP 7 mmol/L (5-15); CHLORIDE 94 mmol/L (98-107); CREATININE 5.51 mg/dL (0.55-1.02)
[2017-08-04 07:10] VITALS: BP 138/67
[2017-08-04] MEDS: HEPARIN 5,000 UNITS/ML, 1ML SQ SCH ×2 (08:53→16:46)
[2017-08-04] MEDS: INSULIN LISPRO 100 UNITS/ML, PEN SQ-INSULIN SCH ×4 (08:53→21:25)
[2017-08-04] MEDS: FERROUS SULFATE 325 MG TABLET PO SCH ×2 (08:53→16:45)
[2017-08-04] MEDS: CALCIUM ACETATE 667 MG CAPSULE PO SCH ×3 (08:53→16:45)
[2017-08-04] MEDS: SENNA/DOCUSATE TABLET PO SCH (08:54)
[2017-08-04] MEDS: CARVEDILOL 12.5 MG TABLET PO SCH ×2 (08:54→21:25)
[2017-08-04] MEDS: MULTIVITAMIN 1 TABLET PO SCH (08:54)
[2017-08-04] MEDS: ASPIRIN 81 MG TABLET EC PO SCH (08:54)
[2017-08-04] MEDS: TEMPLATE NON-FORMULARY MED. (Linagliptin** (Tradjenta**) 5 MG) HOMEMEDPO SCH (08:59)
[2017-08-04 12:35] VITALS: BP 126/67
[2017-08-04 19:11] VITALS: BP 151/72
[2017-08-04] MEDS: TRAZODONE 50MG TABLET PO SCH (21:25)
[2017-08-04] MEDS ORDERED: KETOROLAC 30 MG/1 ML IVPush PRN ×2 (22:00)
[2017-08-05] MEDS: HEPARIN 5,000 UNITS/ML, 1ML SQ SCH ×3 (00:22→15:30)
[2017-08-05 00:46] VITALS: BP 144/72
[2017-08-05] MEDS: CEFTRIAXONE PMX 1GM/50ML 50 ML IV SCH (03:34)
[2017-08-05 07:10] VITALS: BP 156/70
[2017-08-05] MEDS: CALCIUM ACETATE 667 MG CAPSULE PO SCH ×3 (08:25→17:06)
[2017-08-05] MEDS: INSULIN LISPRO 100 UNITS/ML, PEN SQ-INSULIN SCH ×3 (08:25→17:05)
[2017-08-05] MEDS: MULTIVITAMIN 1 TABLET PO SCH (08:26)
[2017-08-05] MEDS: ASPIRIN 81 MG TABLET EC PO SCH (08:26)
[2017-08-05] MEDS: FERROUS SULFATE 325 MG TABLET PO SCH (08:26)
[2017-08-05] MEDS: TEMPLATE NON-FORMULARY MED. (Linagliptin** (Tradjenta**) 5 MG) HOMEMEDPO SCH (08:26)
[2017-08-05] MEDS: SENNA/DOCUSATE TABLET PO SCH (08:47)
[2017-08-05] MEDS: CARVEDILOL 12.5 MG TABLET PO SCH (08:47)
[2017-08-05] MEDS ORDERED: GABAPENTIN 300 MG CAPSULE PO PRN (10:30)
[2017-08-05] MEDS ORDERED: IRON SUCROSE COMPLEX 100MG/5ML IV SCH (11:30)
[2017-08-05] MEDS ORDERED: INSU100I11 SQ-INSULIN (14:55)
[2017-08-05] MEDS ORDERED: SENN1TAB7 PO (14:55)
[2017-08-05] MEDS ORDERED: CEFD300C37 PO (14:58)
[2017-08-08] MEDS ORDERED: ERGOCALCIFEROL 50,000 UNIT CAPSULE PO SCH (09:00)
== END 2017-08-05 18:40 | disposition home or self-care (01) | DRG 291 ==
LOC: ED 22:16 → EDIP 22:20 → 4EST 22:39
PROVIDERS: ADMIT Internal Medicine; ATTEND Internal Medicine
PROC: 5A1D70Z Performance of Urinary Filtration, Intermittent, Less than 6 Hours Per Day (ICD-10-PCS; principal; 2017-08-03)
PROC: 5A1D70Z Performance of Urinary Filtration, Intermittent, Less than 6 Hours Per Day (ICD-10-PCS; 2017-08-05)
DX: I13.2 Hypertensive heart and chronic kidney disease with heart failure and with stage 5 chronic kidney disease, or end stage renal disease (principal); N18.6 End stage renal disease; E44.0 Moderate protein-calorie malnutrition; E11.22 Type 2 diabetes mellitus with diabetic chronic kidney disease; E11.42 Type 2 diabetes mellitus with diabetic polyneuropathy; E66.01 Morbid (severe) obesity due to excess calories; E87.2 Acidosis; N25.0 Renal osteodystrophy; E87.1 Hypo-osmolality and hyponatremia; I48.0 Paroxysmal atrial fibrillation; I50.32 Chronic diastolic (congestive) heart failure; Z68.43 Body mass index [BMI] 50.0-59.9, adult; D63.1 Anemia in chronic kidney disease; E78.5 Hyperlipidemia, unspecified; E87.5 Hyperkalemia; I25.10 Atherosclerotic heart disease of native coronary artery without angina pectoris; I87.8 Other specified disorders of veins; K76.0 Fatty (change of) liver, not elsewhere classified; R62.7 Adult failure to thrive; Z79.01 Long term (current) use of anticoagulants; Z83.3 Family history of diabetes mellitus; Z91.15 Patient's noncompliance with renal dialysis; Z91.19 Patient's noncompliance with other medical treatment and regimen; Z99.2 Dependence on renal dialysis; Z99.3 Dependence on wheelchair; G43.109 Migraine with aura, not intractable, without status migrainosus; G89.29 Other chronic pain; K57.90 Diverticulosis of intestine, part unspecified, without perforation or abscess without bleeding
CPT/HCPCS: 36415; 71045; 80048; 80053; 80061; 81001; 82962; 83036; 83735; 84439; 84443; 84484; 85025; 85610; 85730; 87086; 87106; 99285; J0696; J1644; J1756; J2405; J1815

== ENCOUNTER 2017-10-22 09:17 | Emergency (ER) | payer MEDICAID ==
[~2017-10-22] VITALS: Ht 165.1 cm; Wt 127.3 kg
[~2017-10-22 09:17] MED LIST changes: +INSU100I11 SQ-INSULIN; +REGULAR INSULIN SQ; +SENN1TAB7 PO
[2017-10-22 10:17] LABS: ALANINE AMINOTRANSFERASE 9 U/L (12-78); ALBUMIN 2.7 g/dL (3.4-5.0); ANION GAP 10 mmol/L (5-15); CALCIUM 8.4 mg/dL (8.5-10.1); CHLORIDE 96 mmol/L (98-107); CREATININE 4.76 mg/dL (0.55-1.02)
[2017-10-22 10:19] LABS: ALKALINE PHOSPHATASE 228 U/L (45-117); BILIRUBIN,TOTAL 0.6 mg/dL (0.2-1.0); TOTAL PROTEIN 8.4 g/dL (6.4-8.2)
[2017-10-22 11:14] LABS: BASOPHILS # (AUTO) 0.02 x10^3/uL (0-0.1); BASOPHILS % (AUTO) 0 % (0-1); EOSINOPHILS # (AUTO) 0.34 x10^3/uL (0-0.4); EOSINOPHILS % (AUTO) 5 % (1-7); LYMPHOCYTES # (AUTO) 0.98 x10^3/uL (1-3.4); LYMPHOCYTES % (AUTO) 15 % (22-44); MD SCAN; MEAN CORPUSCULAR HEMOGLOBIN 30.6 pg (27.0-34.8); MEAN CORPUSCULAR HGB CONC 33.4 g/dL (32.4-35.8); MEAN CORPUSCULAR VOLUME 91.6 fL (80-100); MEAN PLATELET VOLUME 9.1 fL (7.4-10.4); MONOCYTES # (AUTO) 0.59 x10^3/uL (0.2-0.8); MONOCYTES % (AUTO) 9 % (2-9); NEUTROPHILS % (AUTO) 71 % (42-75); PLATELET COUNT 173 x10^3/uL (130-400); RED BLOOD COUNT 3.61 x10^6/uL (3.82-5.3); RED CELL DISTRIBUTION WIDTH 15.9 % (9.6-15.2)
[2017-10-22 12:05] LABS: CLOSTRIDIUM DIFFICILE ANTIGEN POSITIVE; CLOSTRIDIUM DIFFICILE TOXIN NEGATIVE (Negative)
[2017-10-22] MEDS ORDERED: OMNIPAQUE 350 MG/ML, 100ML BOTTLE ONE (15:24)
[2017-10-22 16:40] VITALS: BP 138/76
== END 2017-10-22 16:43 | disposition home or self-care (01) ==
LOC: ED 09:29 → SUATTDRO 15:37 → ED 16:43
PROVIDERS: ATTEND Internal Medicine
DX: R10.84 Generalized abdominal pain (principal); R19.7 Diarrhea, unspecified; I50.9 Heart failure, unspecified; I48.91 Unspecified atrial fibrillation; I48.92 Unspecified atrial flutter; E11.65 Type 2 diabetes mellitus with hyperglycemia; E11.22 Type 2 diabetes mellitus with diabetic chronic kidney disease; I12.0 Hypertensive chronic kidney disease with stage 5 chronic kidney disease or end stage renal disease; N18.6 End stage renal disease; N17.9 Acute kidney failure, unspecified; Z99.2 Dependence on renal dialysis; Z79.4 Long term (current) use of insulin; Z90.49 Acquired absence of other specified parts of digestive tract; Z79.82 Long term (current) use of aspirin
CPT/HCPCS: 36415; 74021; 74177; 80053; 83690; 85025; 87324; 87493; 89055; 99285; Q9967

== ENCOUNTER 2017-10-23 18:53 | Emergency (ER) | payer MEDICAID ==
[~2017-10-23] VITALS: Ht 165.1 cm; Wt 127.0 kg
[2017-10-23 19:27] LABS: BASOPHILS # (AUTO) 0.01 x10^3/uL (0-0.1); BASOPHILS % (AUTO) 0 % (0-1); EOSINOPHILS # (AUTO) 0.23 x10^3/uL (0-0.4); EOSINOPHILS % (AUTO) 4 % (1-7); LYMPHOCYTES # (AUTO) 0.72 x10^3/uL (1-3.4); LYMPHOCYTES % (AUTO) 14 % (22-44); MD NO; MEAN CORPUSCULAR HEMOGLOBIN 30.9 pg (27.0-34.8); MEAN CORPUSCULAR HGB CONC 33.6 g/dL (32.4-35.8); MEAN PLATELET VOLUME 8.4 fL (7.4-10.4); MONOCYTES # (AUTO) 0.46 x10^3/uL (0.2-0.8); MONOCYTES % (AUTO) 9 % (2-9); NEUTROPHILS % (AUTO) 72 % (42-75); PLATELET COUNT 177 x10^3/uL (130-400); RED BLOOD COUNT 3.63 x10^6/uL (3.82-5.3); RED CELL DISTRIBUTION WIDTH 16.3 % (9.6-15.2)
[2017-10-23 19:32] LABS: INTERNATIONAL NORMALIZED RATIO 1.19 (0.93-1.1); PROTHROMBIN TIME 12.2 Seconds (9.6-11.5)
[2017-10-23 19:36] LABS: ALANINE AMINOTRANSFERASE 9 U/L (12-78); ALBUMIN 2.9 g/dL (3.4-5.0); ANION GAP 10 mmol/L (5-15); CALCIUM 8.4 mg/dL (8.5-10.1); CHLORIDE 95 mmol/L (98-107); CREATININE 3.41 mg/dL (0.55-1.02)
[2017-10-23 19:38] LABS: ALKALINE PHOSPHATASE 218 U/L (45-117); BILIRUBIN,TOTAL 0.6 mg/dL (0.2-1.0); TOTAL PROTEIN 8.3 g/dL (6.4-8.2)
[2017-10-23 21:20] LABS: CULTURE INDICATED? YES; MICROSCOPIC INDICATED
[2017-10-23 23:29] VITALS: BP 138/82
== END 2017-10-23 23:32 | disposition left against medical advice (07) ==
LOC: ED 19:15
DX: R51 Headache (principal); E11.22 Type 2 diabetes mellitus with diabetic chronic kidney disease; I12.0 Hypertensive chronic kidney disease with stage 5 chronic kidney disease or end stage renal disease; N18.6 End stage renal disease; Z99.2 Dependence on renal dialysis; Z86.73 Personal history of transient ischemic attack (TIA), and cerebral infarction without residual deficits; Z90.49 Acquired absence of other specified parts of digestive tract
CPT/HCPCS: 36415; 70450; 80053; 81001; 85025; 85610; 85730; 87077; 87086; 87186; 93005; 99285

== ENCOUNTER 2017-10-27 13:07 | Inpatient (IN) | payer MEDICAID ==
[~2017-10-27] VITALS: Ht 165.1 cm; Wt 132.8 kg
[2017-10-27 14:53] LABS: MICROSCOPIC INDICATED
[2017-10-27 14:57] LABS: CULTURE INDICATED? YES
[2017-10-27] MEDS ORDERED: CEFTRIAXONE 1,000 MG ONE (15:17)
[2017-10-27] MEDS ORDERED: LIDOCAINE-MPF 1%, 2ML ONE (15:18)
[2017-10-27] MEDS ORDERED: CEFTRIAXONE PMX 1GM/50ML 50 ML IV ONE (15:30)
[2017-10-27] MEDS ORDERED: CEFTRIAXONE 1,000 MG IM ONE (15:30)
[2017-10-27] MEDS ORDERED: CEFTRIAXONE PMX 1GM/50ML 50 ML ONE (15:49)
[2017-10-27 16:02] LABS: BASOPHILS # (AUTO) 0.02 x10^3/uL (0-0.1); BASOPHILS % (AUTO) 0 % (0-1); EOSINOPHILS # (AUTO) 0.23 x10^3/uL (0-0.4); EOSINOPHILS % (AUTO) 6 % (1-7); LYMPHOCYTES # (AUTO) 0.87 x10^3/uL (1-3.4); LYMPHOCYTES % (AUTO) 21 % (22-44); MD NO; MEAN CORPUSCULAR HEMOGLOBIN 30.2 pg (27.0-34.8); MEAN CORPUSCULAR HGB CONC 32.8 g/dL (32.4-35.8); MEAN PLATELET VOLUME 8.4 fL (7.4-10.4); MONOCYTES # (AUTO) 0.36 x10^3/uL (0.2-0.8); MONOCYTES % (AUTO) 8 % (2-9); NEUTROPHILS # (AUTO) 2.77 x10^3/uL (1.8-6.8); NEUTROPHILS % (AUTO) 65 % (42-75); PLATELET COUNT 155 x10^3/uL (130-400); RED BLOOD COUNT 3.89 x10^6/uL (3.82-5.3); RED CELL DISTRIBUTION WIDTH 16.3 % (9.6-15.2)
[2017-10-27 16:09] LABS: ALANINE AMINOTRANSFERASE 8 U/L (12-78); ALBUMIN 2.8 g/dL (3.4-5.0); ANION GAP 9 mmol/L (5-15); CALCIUM 8.5 mg/dL (8.5-10.1); CHLORIDE 91 mmol/L (98-107); CREATININE 5.72 mg/dL (0.55-1.02)
[2017-10-27 16:11] LABS: ALKALINE PHOSPHATASE 188 U/L (45-117); BILIRUBIN,TOTAL 0.6 mg/dL (0.2-1.0)
[2017-10-27] MEDS ORDERED: ONDANSETRON 2MG/ML, 2ML IVPush PRN (18:00)
[2017-10-27] MEDS ORDERED: VANCOMYCIN PMX 1GM/200ML 200 ML IV ONE (18:00)
[2017-10-27] MEDS ORDERED: ONDANSETRON ODT 4 MG PO PRN (18:00)
[2017-10-27] MEDS ORDERED: DOCUSATE 100 MG CAPSULE PO PRN (18:00)
[2017-10-27] MEDS ORDERED: hydrALAzine 20 MG/ML, 1ML IVPush PRN (18:00)
[2017-10-27] MEDS ORDERED: VANCOMYCIN PER PHARMACY MC PRN (18:00)
[2017-10-27 18:35] LABS: FREE T4 (FREE THYROXINE) 1.46 ng/dL (0.76-1.46); THYROID STIMULATING HORMONE 4.41 mIU/L (0.358-3.740)
[2017-10-27 19:02] LABS: HEMOGLOBIN A1C 9.1 % (4.2-6.3)
[2017-10-27 19:40] VITALS: BP 123/74
[2017-10-27 21:18] VITALS: BP 123/74
[2017-10-27] MEDS ORDERED: PHARMACOKINETIC CONSULTATION MC ONE (21:30)
[2017-10-27] MEDS ORDERED: PHARMACOKINETIC MONITORING MC PRN (21:30)
[2017-10-27] MEDS ORDERED: VANCOMYCIN 2,000 MG in SODIUM CHLORIDE 0.9% 500 ML IV ONE (21:30)
[2017-10-27] MEDS: HEPARIN 5,000 UNITS/ML, 1ML SQ SCH (22:13)
[2017-10-28 05:46] LABS: BASOPHILS # (AUTO) 0.03 x10^3/uL (0-0.1); BASOPHILS % (AUTO) 1 % (0-1); EOSINOPHILS # (AUTO) 0.34 x10^3/uL (0-0.4); EOSINOPHILS % (AUTO) 8 % (1-7); LYMPHOCYTES # (AUTO) 0.65 x10^3/uL (1-3.4); LYMPHOCYTES % (AUTO) 14 % (22-44); MD NO; MEAN CORPUSCULAR HEMOGLOBIN 30.2 pg (27.0-34.8); MEAN CORPUSCULAR VOLUME 91.4 fL (80-100); MONOCYTES # (AUTO) 0.42 x10^3/uL (0.2-0.8); MONOCYTES % (AUTO) 9 % (2-9); NEUTROPHILS # (AUTO) 3.08 x10^3/uL (1.8-6.8); NEUTROPHILS % (AUTO) 68 % (42-75); PLATELET COUNT 170 x10^3/uL (130-400); RED BLOOD COUNT 3.73 x10^6/uL (3.82-5.3); RED CELL DISTRIBUTION WIDTH 16.6 % (9.6-15.2)
[2017-10-28 05:51] LABS: CHLORIDE 93 mmol/L (98-107)
[2017-10-28 05:59] LABS: ALANINE AMINOTRANSFERASE 7 U/L (12-78); ALBUMIN 2.7 g/dL (3.4-5.0); ALKALINE PHOSPHATASE 177 U/L (45-117); ANION GAP 8 mmol/L (5-15); BILIRUBIN,TOTAL 0.7 mg/dL (0.2-1.0); CALCIUM 8.2 mg/dL (8.5-10.1); CHOLESTEROL, TOTAL 76 mg/dL (140-239); CREATININE 6.24 mg/dL (0.55-1.02); HDL CHOL % 25 % (28-40); HDL CHOLESTEROL (DIRECT) 19 mg/dL (40-60); LDL CHOLESTEROL,CALCULATED 26 mg/dL (54-169); LDL/HDL RATIO 1.4 (0.5-3.0); TOTAL PROTEIN 7.7 g/dL (6.4-8.2); TRIGLYCERIDES 156 mg/dL (50-200); VLDL CHOLESTEROL 31 mg/dL (0-25)
[2017-10-28] MEDS: HEPARIN 5,000 UNITS/ML, 1ML SQ SCH ×3 (06:26→23:38)
[2017-10-28] MEDS: ACETAMINOPHEN 325 MG TABLET PO PRN ×3 (06:26→21:11)
[2017-10-28] MEDS ORDERED: POTASSIUM CHLORIDE 20 MEQ TAB.ER.PRT PO ONE (10:00)
[2017-10-28 10:31] VITALS: BP 114/72
[2017-10-28] MEDS ORDERED: MULT-516 PO (13:52)
[2017-10-28] MEDS ORDERED: CALC1TAB72 PO (14:14)
[2017-10-28] MEDS ORDERED: ALBU90AE INH (14:14)
[2017-10-28] MEDS ORDERED: INSU100I28 SQ-INSULIN (14:14)
[2017-10-28] MEDS ORDERED: PANT40TA5 PO (14:14)
[2017-10-28] MEDS ORDERED: INSU500V SQ-INSULIN (14:14)
[2017-10-28] MEDS ORDERED: FURO40TA6 PO (14:14)
[2017-10-28] MEDS ORDERED: ATOR40TA PO (14:14)
[2017-10-28] MEDS ORDERED: FELO5TAB PO (14:14)
[2017-10-28] MEDS ORDERED: ASCO500T7 PO (14:14)
[2017-10-28] MEDS: INSULIN LISPRO 100 UNITS/ML, PEN SQ-INSULIN SCH ×2 (15:44→21:00)
[2017-10-28] MEDS ORDERED: ALBUTEROL SULFATE 2.5 MG/3 ML NPPB PRN (16:00)
[2017-10-28] MEDS: FERROUS SULFATE 325 MG TABLET PO SCH (16:55)
[2017-10-28 19:50] VITALS: BP 131/87
[2017-10-28] MEDS: INSULIN GLARGINE 100 UNITS/ML, PEN SQ-INSULIN SCH (21:00)
[2017-10-28] MEDS: FUROSEMIDE 40 MG TABLET PO SCH (21:00)
[2017-10-28] MEDS: CARVEDILOL 12.5 MG TABLET PO SCH (21:11)
[2017-10-28] MEDS: TRAZODONE 50MG TABLET PO SCH (21:11)
[2017-10-28] MEDS: GABAPENTIN 300 MG CAPSULE PO PRN (21:12)
[2017-10-28] MEDS: CEFTRIAXONE PMX 1GM/50ML 50 ML IV SCH (21:13)
[2017-10-28] MEDS: CALCIUM/VITAMIN D3 250-125 TABLET PO SCH (21:13)
[2017-10-28] MEDS: ATORVASTATIN 40 MG TABLET PO SCH (21:13)
[2017-10-28 21:46] VITALS: BP 123/71
[2017-10-29 01:32] VITALS: BP 118/66
[2017-10-29 06:13] LABS: BASOPHILS # (AUTO) 0.02 x10^3/uL (0-0.1); BASOPHILS % (AUTO) 1 % (0-1); EOSINOPHILS # (AUTO) 0.49 x10^3/uL (0-0.4); EOSINOPHILS % (AUTO) 13 % (1-7); LYMPHOCYTES # (AUTO) 0.77 x10^3/uL (1-3.4); LYMPHOCYTES % (AUTO) 21 % (22-44); MD NO; MEAN CORPUSCULAR HEMOGLOBIN 30.5 pg (27.0-34.8); MEAN CORPUSCULAR VOLUME 92.2 fL (80-100); MEAN PLATELET VOLUME 8.3 fL (7.4-10.4); MONOCYTES % (AUTO) 11 % (2-9); NEUTROPHILS # (AUTO) 2.08 x10^3/uL (1.8-6.8); NEUTROPHILS % (AUTO) 55 % (42-75); PLATELET COUNT 136 x10^3/uL (130-400); RED BLOOD COUNT 3.73 x10^6/uL (3.82-5.3); RED CELL DISTRIBUTION WIDTH 16.1 % (9.6-15.2)
[2017-10-29 06:16] LABS: ALBUMIN 2.6 g/dL (3.4-5.0); ANION GAP 9 mmol/L (5-15); CALCIUM 8.5 mg/dL (8.5-10.1); CHLORIDE 96 mmol/L (98-107); CREATININE 5.08 mg/dL (0.55-1.02)
[2017-10-29] MEDS: INSULIN LISPRO 100 UNITS/ML, PEN SQ-INSULIN SCH ×4 (07:00→21:28)
[2017-10-29] MEDS: HEPARIN 5,000 UNITS/ML, 1ML SQ SCH ×3 (08:00→21:05)
[2017-10-29] MEDS: FERROUS SULFATE 325 MG TABLET PO SCH ×2 (08:01→16:35)
[2017-10-29] MEDS: CARVEDILOL 12.5 MG TABLET PO SCH ×2 (08:02→21:05)
[2017-10-29] MEDS: FUROSEMIDE 40 MG TABLET PO SCH ×2 (08:02→21:06)
[2017-10-29] MEDS: ASCORBIC ACID 500 MG TABLET PO SCH (08:02)
[2017-10-29] MEDS: AMLODIPINE 5 MG TABLET PO SCH (08:02)
[2017-10-29] MEDS: ASPIRIN 81 MG TABLET EC PO SCH (08:02)
[2017-10-29] MEDS: CALCIUM/VITAMIN D3 250-125 TABLET PO SCH ×2 (08:03→21:06)
[2017-10-29] MEDS: MULTIVITAMIN 1 TABLET PO SCH (08:07)
[2017-10-29] MEDS: PANTOPROZOLE 40MG TABLET PO SCH (08:07)
[2017-10-29] MEDS: INSULIN GLARGINE 100 UNITS/ML, PEN SQ-INSULIN SCH ×2 (09:00→21:29)
[2017-10-29 09:03] VITALS: BP 111/60
[2017-10-29] MEDS: LINAGLIPTIN 5 MG TAB PO SCH (10:47)
[2017-10-29] MEDS: GABAPENTIN 300 MG CAPSULE PO PRN (12:05)
[2017-10-29] MEDS: ACETAMINOPHEN 325 MG TABLET PO PRN (12:08)
[2017-10-29 14:44] VITALS: BP 107/54
[2017-10-29 19:22] VITALS: BP 113/72
[2017-10-29] MEDS: CEFTRIAXONE PMX 1GM/50ML 50 ML IV SCH (21:05)
[2017-10-29] MEDS: TRAZODONE 50MG TABLET PO SCH (21:06)
[2017-10-29] MEDS: ATORVASTATIN 40 MG TABLET PO SCH (21:06)
[2017-10-30 01:38] VITALS: BP 109/68
[2017-10-30 06:10] LABS: ALBUMIN 2.5 g/dL (3.4-5.0); ANION GAP 8 mmol/L (5-15); CALCIUM 8.5 mg/dL (8.5-10.1); CHLORIDE 95 mmol/L (98-107)
[2017-10-30 06:13] LABS: ALKALINE PHOSPHATASE 171 U/L (45-117); BILIRUBIN,TOTAL 0.8 mg/dL (0.2-1.0); CREATININE 6.42 mg/dL (0.55-1.02); TOTAL PROTEIN 7.7 g/dL (6.4-8.2); VANCOMYCIN,RANDOM 17.4 mcg/mL
[2017-10-30 06:17] LABS: ALANINE AMINOTRANSFERASE < 6 U/L (12-78)
[2017-10-30] MEDS: INSULIN LISPRO 100 UNITS/ML, PEN SQ-INSULIN SCH ×3 (07:00→16:00)
[2017-10-30 08:35] VITALS: BP 111/63
[2017-10-30] MEDS: HEPARIN 5,000 UNITS/ML, 1ML SQ SCH ×2 (09:22→16:04)
[2017-10-30] MEDS: ASCORBIC ACID 500 MG TABLET PO SCH (09:22)
[2017-10-30] MEDS: ASPIRIN 81 MG TABLET EC PO SCH (09:22)
[2017-10-30] MEDS: CALCIUM/VITAMIN D3 250-125 TABLET PO SCH (09:22)
[2017-10-30] MEDS: MULTIVITAMIN 1 TABLET PO SCH (09:22)
[2017-10-30] MEDS: FERROUS SULFATE 325 MG TABLET PO SCH ×2 (09:23→16:04)
[2017-10-30] MEDS: FUROSEMIDE 40 MG TABLET PO SCH (09:23)
[2017-10-30] MEDS: AMLODIPINE 5 MG TABLET PO SCH (09:23)
[2017-10-30] MEDS: CARVEDILOL 12.5 MG TABLET PO SCH (09:23)
[2017-10-30] MEDS: LINAGLIPTIN 5 MG TAB PO SCH (09:23)
[2017-10-30] MEDS: INSULIN GLARGINE 100 UNITS/ML, PEN SQ-INSULIN SCH (09:27)
[2017-10-30] MEDS: PANTOPROZOLE 40MG TABLET PO SCH (09:34)
[2017-10-30] MEDS: GABAPENTIN 300 MG CAPSULE PO PRN (09:38)
[2017-10-30] MEDS: ACETAMINOPHEN 325 MG TABLET PO PRN (09:38)
[2017-10-30] MEDS ORDERED: AMOX1TAB64 PO (14:44)
[2017-10-30 16:00] VITALS: BP 127/67
[2017-10-30] MEDS ORDERED: VANCOMYCIN 2,000 MG in SODIUM CHLORIDE 0.9% 500 ML IV ONE (22:00)
== END 2017-10-30 18:50 | disposition home or self-care (01) | DRG 689 ==
LOC: ED 16:03 → EDIP 17:15 → 3NE 19:00
PROVIDERS: ADMIT Internal Medicine; ATTEND Internal Medicine
PROC: 5A1D70Z Performance of Urinary Filtration, Intermittent, Less than 6 Hours Per Day (ICD-10-PCS; principal; 2017-10-28)
PROC: 5A1D70Z Performance of Urinary Filtration, Intermittent, Less than 6 Hours Per Day (ICD-10-PCS; 2017-10-30)
DX: N39.0 Urinary tract infection, site not specified (principal); N18.6 End stage renal disease; E44.0 Moderate protein-calorie malnutrition; Z68.42 Body mass index [BMI] 45.0-49.9, adult; I13.2 Hypertensive heart and chronic kidney disease with heart failure and with stage 5 chronic kidney disease, or end stage renal disease; I50.32 Chronic diastolic (congestive) heart failure; D63.1 Anemia in chronic kidney disease; E11.22 Type 2 diabetes mellitus with diabetic chronic kidney disease; E66.01 Morbid (severe) obesity due to excess calories; E78.5 Hyperlipidemia, unspecified; E87.6 Hypokalemia; I25.10 Atherosclerotic heart disease of native coronary artery without angina pectoris; I48.0 Paroxysmal atrial fibrillation; I87.8 Other specified disorders of veins; G43.109 Migraine with aura, not intractable, without status migrainosus; G89.29 Other chronic pain; I27.20 Pulmonary hypertension, unspecified; K76.0 Fatty (change of) liver, not elsewhere classified; K57.90 Diverticulosis of intestine, part unspecified, without perforation or abscess without bleeding; E11.65 Type 2 diabetes mellitus with hyperglycemia; N25.0 Renal osteodystrophy; Z79.01 Long term (current) use of anticoagulants; Z83.3 Family history of diabetes mellitus; Z91.14 Patient's other noncompliance with medication regimen; Z91.15 Patient's noncompliance with renal dialysis; Z99.2 Dependence on renal dialysis; Z99.3 Dependence on wheelchair; Z87.01 Personal history of pneumonia (recurrent)
CPT/HCPCS: 36415; 80053; 80061; 80069; 80202; 81001; 82962; 83036; 83735; 84100; 84439; 84443; 85025; 86704; 86706; 87040; 87077; 87086; 87186; 87340; 96374; J0696; J1644; J3370; J7040

== ENCOUNTER 2018-01-01 09:41 | Emergency (ER) | payer MEDICAID ==
[~2018-01-01] VITALS: Ht 165.1 cm; Wt 126.6 kg
[~2018-01-01 09:41] MED LIST changes: +ALBU90AE INH; +ASCO500T7 PO; +ATOR40TA PO; +CALC1TAB72 PO; +DOXA1TAB2 PO; +FELO5TAB PO; +FURO40TA6 PO; +INSU100I28 SQ-INSULIN; +INSU500V SQ-INSULIN; +METR500T8 PO; +MULT-516 PO; +PANT40TA5 PO; +TRAZ-136 PO; -TRAZ50TA18 PO
[2018-01-01] MEDS ORDERED: ACETAMINOPHEN 500 MG TABLET PO ONE (10:30)
[2018-01-01 10:31] LABS: BASOPHILS # (AUTO) 0.02 x10^3/uL (0-0.1); BASOPHILS % (AUTO) 0 % (0-1); EOSINOPHILS # (AUTO) 0.35 x10^3/uL (0-0.4); EOSINOPHILS % (AUTO) 8 % (1-7); LYMPHOCYTES # (AUTO) 0.95 x10^3/uL (1-3.4); LYMPHOCYTES % (AUTO) 20 % (22-44); MD NO; MEAN CORPUSCULAR HEMOGLOBIN 30.6 pg (27.0-34.8); MEAN CORPUSCULAR HGB CONC 34.3 g/dL (32.4-35.8); MEAN CORPUSCULAR VOLUME 89.4 fL (80-100); MEAN PLATELET VOLUME 10.2 fL (7.4-10.4); MONOCYTES # (AUTO) 0.37 x10^3/uL (0.2-0.8); MONOCYTES % (AUTO) 8 % (2-9); NEUTROPHILS # (AUTO) 2.99 x10^3/uL (1.8-6.8); NEUTROPHILS % (AUTO) 64 % (42-75); PLATELET COUNT 127 x10^3/uL (130-400); RED BLOOD COUNT 3.41 x10^6/uL (3.82-5.3); RED CELL DISTRIBUTION WIDTH 15.8 % (9.6-15.2)
[2018-01-01 10:37] LABS: INTERNATIONAL NORMALIZED RATIO 0.93 (0.93-1.1); PROTHROMBIN TIME 9.7 Seconds (9.6-11.5)
[2018-01-01 10:38] LABS: ALBUMIN 2.9 g/dL (3.4-5.0); ANION GAP 7 mmol/L (5-15); CALCIUM 8.5 mg/dL (8.5-10.1); CHLORIDE 93 mmol/L (98-107); CREATININE 4.53 mg/dL (0.55-1.02)
[2018-01-01] MEDS ORDERED: ACETAMINOPHEN 500 MG TABLET ONE (10:49)
[2018-01-01 12:10] VITALS: BP 160/73
== END 2018-01-01 12:18 | disposition home or self-care (01) ==
LOC: ED 11:18
DX: S40.022A Contusion of left upper arm, initial encounter (principal); I13.2 Hypertensive heart and chronic kidney disease with heart failure and with stage 5 chronic kidney disease, or end stage renal disease; N18.6 End stage renal disease; I50.9 Heart failure, unspecified; I48.91 Unspecified atrial fibrillation; I48.92 Unspecified atrial flutter; E11.22 Type 2 diabetes mellitus with diabetic chronic kidney disease; Z90.49 Acquired absence of other specified parts of digestive tract; Z99.2 Dependence on renal dialysis; Z88.5 Allergy status to narcotic agent; Z88.2 Allergy status to sulfonamides; Y83.8 Other surgical procedures as the cause of abnormal reaction of the patient, or of later complication, without mention of misadventure at the time of the procedure; Y93.89 Activity, other specified; Y92.89 Other specified places as the place of occurrence of the external cause; Y99.8 Other external cause status
CPT/HCPCS: 36415; 80048; 82040; 85025; 85610; 93990; 99285

== ENCOUNTER 2018-06-26 15:57 | Inpatient (IN) | payer MEDICAID, MEDICARE ==
[~2018-06-26] VITALS: Ht 165.1 cm; Wt 136.8 kg
[~2018-06-26 15:57] MED LIST changes: -GABA600T2 PO; +GABA600T7 PO; +LOSA25TA25 PO; -LOSA25TA5 PO; +METR-90 PO; -METR500T8 PO; -SENN1TAB7 PO; +SENN1TAB8 PO; -TRAZ-136 PO; +TRAZ50TA66 PO
--- NOTE | 2018-06-26 16:33 | NUR ---
PATIENT TO ER17 FROM [facility] VIA WHEELCHAIR
[2018-06-26 16:38] LABS: BASOPHILS # (AUTO) 0.02 x10^3/uL (0-0.1); BASOPHILS % (AUTO) 1 % (0-1); EOSINOPHILS # (AUTO) 0.51 x10^3/uL (0-0.4); EOSINOPHILS % (AUTO) 11 % (1-7); LYMPHOCYTES % (AUTO) 17 % (22-44); MD MORPH REVIEW ONLY; MEAN CORPUSCULAR HGB CONC 32.2 g/dL (32.4-35.8); MEAN CORPUSCULAR VOLUME 93.3 fL (80-100); MONOCYTES # (AUTO) 0.36 x10^3/uL (0.2-0.8); MONOCYTES % (AUTO) 8 % (2-9); NEUTROPHILS # (AUTO) 3.08 x10^3/uL (1.8-6.8); NEUTROPHILS % (AUTO) 65 % (42-75); PLATELET COUNT 168 x10^3/uL (130-400); RED BLOOD COUNT 3.73 x10^6/uL (3.82-5.3)
[2018-06-26 16:45] LABS: ALANINE AMINOTRANSFERASE 8 U/L (12-78); ALBUMIN 2.9 g/dL (3.4-5.0); ANION GAP 6 mmol/L (5-15); CALCIUM 8.6 mg/dL (8.5-10.1); CHLORIDE 99 mmol/L (98-107); CREATININE 4.75 mg/dL (0.55-1.02)
[2018-06-26 16:47] LABS: ALKALINE PHOSPHATASE 168 U/L (45-117); BILIRUBIN,TOTAL 0.8 mg/dL (0.2-1.0); TOTAL PROTEIN 8.8 g/dL (6.4-8.2)
[2018-06-26 16:53] LABS: ANISOCYTOSIS 1+; RED CELL DISTRIBUTION WIDTH 17.4 % (9.6-15.2)
[2018-06-26 16:54] LABS: <PLATELET ESTIMATE> ADEQUATE; <PLT MORPHOLOGY> NORMAL PLT MORPH; POLYCHROMASIA 1+
--- NOTE | 2018-06-26 17:52 | NUR ---
bedside report to rn Stacie, pt care transferred at this time. pt in pelvic bed, pelvic ready, nad.
--- NOTE | 2018-06-26 17:53 | NUR ---
REPORT RECEIVED FROM CARLOS PATTERSON. PT RESTING ON GURNEY, C/O VAGINAL PAIN, ERP AWARE, PELVIC SETUP READY, DENIES NEEDS AT THIS TIME, CALL LIGHT WITHIN REACH.
--- NOTE | 2018-06-26 18:35 | NUR ---
IV SITE STARTED, PT RESTING CALMLY, MONITORS IN PLACE, CALL LIGHT WITHIN REACH. AWAITING CT
[2018-06-26] MEDS ORDERED: OMNIPAQUE 350 MG/ML, 150 ML BOTTLE ONE (19:27)
--- NOTE | 2018-06-26 19:32 | NUR ---
PT RESTING CALMLY, MONITORS IN PLACE, CALL LIGTH WITHIN REACH, URINE SAMPLE SENT
[2018-06-26 19:49] LABS: MICROSCOPIC INDICATED
[2018-06-26 19:50] LABS: CULTURE INDICATED? YES
--- NOTE | 2018-06-26 20:26 | NUR ---
PT RESTING ON GURNEY, MONITORS IN PLACE, FAMILY AT BEDSIDE, CALL LIGHT WITHIN REACH.
[2018-06-26] MEDS ORDERED: CLINDAMYCIN PMX 600MG/50ML 50 ML ONE (21:16)
[2018-06-26] MEDS ORDERED: CEFTRIAXONE PMX 1GM/50ML 50 ML ONE (21:17)
[2018-06-26] MEDS ORDERED: CLINDAMYCIN PMX 600MG/50ML 50 ML IV ONE (21:30)
[2018-06-26] MEDS ORDERED: CEFTRIAXONE PMX 1GM/50ML 50 ML IV ONE (21:30)
--- NOTE | 2018-06-26 21:45 | NUR ---
PT RESTING ON GURNEY, MONITORS IN PLACE, IV ABX INFUSING, CALL LIGHT WITHIN REACH. ADMIT MD AT BEDSIDE, AWAITING ROOM FOR TRANSFER
[2018-06-26 22:25] VITALS: BP 124/68
[2018-06-26] MEDS ORDERED: ONDANSETRON 2MG/ML, 2ML IVPush PRN (22:30)
[2018-06-26] MEDS ORDERED: GABAPENTIN 300 MG CAPSULE PO PRN (22:30)
[2018-06-26] MEDS: INSULIN GLARGINE 100 UNITS/ML, PEN SQ-INSULIN SCH (22:30)
[2018-06-26] MEDS ORDERED: ACETAMINOPHEN 325 MG TABLET PO PRN (22:30)
[2018-06-26] MEDS ORDERED: POLYETHYLENE GLYCOL 17 GM PACKET PO PRN (22:30)
[2018-06-26] MEDS ORDERED: BISACODYL 10 MG SUPP PR PRN (22:30)
[2018-06-26] MEDS: INSULIN LISPRO 100 UNITS/ML, PEN SQ-INSULIN SCH (23:00)
[2018-06-26 23:03] LABS: HEMOGLOBIN A1C 5.2 % (4.2-6.3)
[2018-06-26] MEDS: OXYcodone IR 5MG TABLET PO PRN (23:29)
[2018-06-26] MEDS: FUROSEMIDE 40 MG TABLET PO SCH (23:30)
[2018-06-26] MEDS: CALCIUM/VITAMIN D3 250-125 TABLET PO SCH (23:30)
[2018-06-26] MEDS: TRAZODONE 50MG TABLET PO SCH (23:30)
[2018-06-26] MEDS: CARVEDILOL 12.5 MG TABLET PO SCH (23:30)
[2018-06-26] MEDS: FERROUS SULFATE 325 MG TABLET PO SCH (23:31)
[2018-06-26] MEDS: SODIUM CHLORIDE FLUSH 10ML SYR IVF SCH (23:31)
[2018-06-27 01:35] VITALS: BP 135/77
[2018-06-27] MEDS: CLINDAMYCIN PMX 600MG/50ML 50 ML IV SCH ×4 (02:50→22:06)
[2018-06-27] MEDS: OXYcodone IR 5MG TABLET PO PRN ×2 (04:39→22:13)
[2018-06-27] MEDS ORDERED: ALBUTEROL SULFATE 2.5 MG/3 ML NPPB PRN (05:00)
[2018-06-27 05:10] LABS: BASOPHILS # (AUTO) 0.03 x10^3/uL (0-0.1); BASOPHILS % (AUTO) 1 % (0-1); EOSINOPHILS # (AUTO) 0.41 x10^3/uL (0-0.4); EOSINOPHILS % (AUTO) 9 % (1-7); LYMPHOCYTES # (AUTO) 0.44 x10^3/uL (1-3.4); LYMPHOCYTES % (AUTO) 10 % (22-44); MD NO; MEAN CORPUSCULAR HEMOGLOBIN 30.7 pg (27.0-34.8); MEAN CORPUSCULAR HGB CONC 32.8 g/dL (32.4-35.8); MEAN CORPUSCULAR VOLUME 93.5 fL (80-100); MEAN PLATELET VOLUME 8.6 fL (7.4-10.4); MONOCYTES # (AUTO) 0.35 x10^3/uL (0.2-0.8); MONOCYTES % (AUTO) 8 % (2-9); NEUTROPHILS # (AUTO) 3.28 x10^3/uL (1.8-6.8); NEUTROPHILS % (AUTO) 73 % (42-75); PLATELET COUNT 163 x10^3/uL (130-400); RED BLOOD COUNT 3.46 x10^6/uL (3.82-5.3); RED CELL DISTRIBUTION WIDTH 16.7 % (9.6-15.2)
[2018-06-27 05:12] LABS: ALBUMIN 2.6 g/dL (3.4-5.0); ANION GAP 6 mmol/L (5-15); CALCIUM 8.3 mg/dL (8.5-10.1); CHLORIDE 99 mmol/L (98-107)
[2018-06-27 05:15] LABS: ALANINE AMINOTRANSFERASE 8 U/L (12-78); ALKALINE PHOSPHATASE 158 U/L (45-117); BILIRUBIN,TOTAL 0.8 mg/dL (0.2-1.0); CREATININE 5.32 mg/dL (0.55-1.02)
[2018-06-27 06:31] VITALS: BP 122/66
[2018-06-27] MEDS: INSULIN LISPRO 100 UNITS/ML, PEN SQ-INSULIN SCH ×4 (07:28→21:00)
[2018-06-27] MEDS: FERROUS SULFATE 325 MG TABLET PO SCH ×2 (08:52→22:07)
[2018-06-27] MEDS: ASCORBIC ACID 500 MG TABLET PO SCH (08:52)
[2018-06-27] MEDS: FUROSEMIDE 40 MG TABLET PO SCH ×2 (08:52→22:06)
[2018-06-27] MEDS: MULTIVITAMIN 1 TABLET PO SCH (08:52)
[2018-06-27] MEDS: CALCIUM/VITAMIN D3 250-125 TABLET PO SCH ×2 (08:52→22:07)
[2018-06-27] MEDS: PANTOPROZOLE 40MG TABLET PO SCH (08:53)
[2018-06-27] MEDS: TEMPLATE NON-FORMULARY MED. (Felodipine (Felodipine Er) 5 MG) PO SCH (08:53)
[2018-06-27] MEDS: CARVEDILOL 12.5 MG TABLET PO SCH ×2 (08:53→22:07)
[2018-06-27] MEDS: SODIUM CHLORIDE FLUSH 10ML SYR IVF SCH ×2 (08:53→21:00)
[2018-06-27] MEDS: SENNA/DOCUSATE TABLET PO SCH (08:53)
[2018-06-27] MEDS ORDERED: ASPIRIN 81 MG TABLET CHEW PO SCH (09:00)
[2018-06-27] MEDS ORDERED: DARBEPOETIN 60 MCG/ML SQ SCH (11:00)
[2018-06-27] MEDS: INSULIN GLARGINE 100 UNITS/ML, PEN SQ-INSULIN SCH ×2 (11:19→22:30)
[2018-06-27 11:57] VITALS: BP 107/68
[2018-06-27 14:42] VITALS: BP 124/77
[2018-06-27] MEDS ORDERED: CEFTRIAXONE PMX 1GM/50ML 50 ML IV SCH (21:00)
[2018-06-27 21:59] VITALS: BP 111/68
[2018-06-27] MEDS: TRAZODONE 50MG TABLET PO SCH (22:06)
[2018-06-27] MEDS: LINAGLIPTIN 5 MG TAB PO SCH (22:07)
[2018-06-28 01:15] VITALS: BP 97/65
[2018-06-28] MEDS: CLINDAMYCIN PMX 600MG/50ML 50 ML IV SCH ×2 (03:19→08:57)
[2018-06-28 05:05] LABS: ALBUMIN 2.4 g/dL (3.4-5.0); ANION GAP 4 mmol/L (5-15); CALCIUM 8.2 mg/dL (8.5-10.1); CHLORIDE 100 mmol/L (98-107); CREATININE 3.97 mg/dL (0.55-1.02)
[2018-06-28 06:54] VITALS: BP 96/59
[2018-06-28] MEDS: INSULIN LISPRO 100 UNITS/ML, PEN SQ-INSULIN SCH ×2 (07:02→11:19)
[2018-06-28] MEDS: MULTIVITAMIN 1 TABLET PO SCH (08:56)
[2018-06-28] MEDS: FERROUS SULFATE 325 MG TABLET PO SCH (08:56)
[2018-06-28] MEDS: CALCIUM/VITAMIN D3 250-125 TABLET PO SCH (08:57)
[2018-06-28] MEDS: SODIUM CHLORIDE FLUSH 10ML SYR IVF SCH (08:57)
[2018-06-28] MEDS: TEMPLATE NON-FORMULARY MED. (Felodipine (Felodipine Er) 5 MG) PO SCH (08:57)
[2018-06-28] MEDS: ASCORBIC ACID 500 MG TABLET PO SCH (08:57)
[2018-06-28] MEDS: FUROSEMIDE 40 MG TABLET PO SCH (08:57)
[2018-06-28] MEDS: PANTOPROZOLE 40MG TABLET PO SCH (08:57)
[2018-06-28] MEDS: SENNA/DOCUSATE TABLET PO SCH (08:58)
[2018-06-28] MEDS: LINAGLIPTIN 5 MG TAB PO SCH (08:58)
[2018-06-28] MEDS ORDERED: CARVEDILOL 6.25 MG TABLET PO SCH (09:00)
[2018-06-28] MEDS ORDERED: CARV6.2512 PO (09:33)
[2018-06-28] MEDS ORDERED: CEFD300C37 PO (09:33)
[2018-06-28] MEDS ORDERED: CLIN300C8 PO (09:33)
[2018-06-28] MEDS: INSULIN GLARGINE 100 UNITS/ML, PEN SQ-INSULIN SCH (11:19)
[2018-06-28 12:24] VITALS: BP 97/62
== END 2018-06-28 15:29 | disposition home or self-care (01) | DRG 606 ==
LOC: ED 18:26 → EDIP 21:29 → 3NE 22:06
PROVIDERS: ADMIT Hospitalist; ATTEND Hospitalist
PROC: 0T9B70Z Drainage of Bladder with Drainage Device, Via Natural or Artificial Opening (ICD-10-PCS; 2018-06-26)
PROC: 5A1D70Z Performance of Urinary Filtration, Intermittent, Less than 6 Hours Per Day (ICD-10-PCS; principal; 2018-06-27)
DX: M79.3 Panniculitis, unspecified (principal); N18.6 End stage renal disease; E44.0 Moderate protein-calorie malnutrition; E87.3 Alkalosis; I13.2 Hypertensive heart and chronic kidney disease with heart failure and with stage 5 chronic kidney disease, or end stage renal disease; I50.32 Chronic diastolic (congestive) heart failure; L03.90 Cellulitis, unspecified; Z68.43 Body mass index [BMI] 50.0-59.9, adult; N30.90 Cystitis, unspecified without hematuria; B96.20 Unspecified Escherichia coli [E. coli] as the cause of diseases classified elsewhere; D63.1 Anemia in chronic kidney disease; E11.21 Type 2 diabetes mellitus with diabetic nephropathy; E11.22 Type 2 diabetes mellitus with diabetic chronic kidney disease; E66.01 Morbid (severe) obesity due to excess calories; K57.90 Diverticulosis of intestine, part unspecified, without perforation or abscess without bleeding; E78.5 Hyperlipidemia, unspecified; G89.29 Other chronic pain; I25.10 Atherosclerotic heart disease of native coronary artery without angina pectoris; I48.0 Paroxysmal atrial fibrillation; I87.8 Other specified disorders of veins; K75.81 Nonalcoholic steatohepatitis (NASH); N25.0 Renal osteodystrophy; Z16.11 Resistance to penicillins; Z79.4 Long term (current) use of insulin; Z82.49 Family history of ischemic heart disease and other diseases of the circulatory system; Z83.3 Family history of diabetes mellitus; Z91.19 Patient's noncompliance with other medical treatment and regimen; Z99.2 Dependence on renal dialysis; Z79.82 Long term (current) use of aspirin; Z79.899 Other long term (current) drug therapy; Z90.49 Acquired absence of other specified parts of digestive tract
CPT/HCPCS: 36415; 74177; 80053; 80069; 81001; 82962; 83036; 85025; 86705; 86706; 86803; 87077; 87086; 87186; 87340; 96365; 96375; G0378; J0696; J0881; Q9967; J1815

== ENCOUNTER 2018-08-25 20:01 | Inpatient (IN) | payer MEDICAID ==
[~2018-08-25] VITALS: Ht 165.1 cm; Wt 130.0 kg
[~2018-08-25 20:01] MED LIST changes: +CARV6.2512 PO; +CLIN300C8 PO; +SENN-177 PO; -SENN1TAB8 PO
--- NOTE | 2018-08-25 20:56 | NUR ---
IRMA DIAS AT BS NOW.
[2018-08-25] MEDS ORDERED: SODIUM CHLORIDE FLUSH 10ML SYR IVF ONE (21:30)
--- NOTE | 2018-08-25 21:33 | NUR ---
PT ARRIVES TO ED WITH C/O OF FALLING DOWN AND BEING ON THE FLOOR FOR 12 HOURS AND NOT BEING ABLE TO GET UP. PT REPORTS SHE WAS LAYING ON RIGHT HIP AND VERY PAINFUL AT THIS TIME. PT HAD NO DEFROMITY OR BRUISING AT THIS TIME. PT CONNECTED TO MONITORS AND CALL LIGHT IN REACH. VSS AND FAMILY AT BEDSIDE. BG 167.
[2018-08-25 21:57] LABS: BASOPHILS # (AUTO) 0.01 x10^3/uL (0-0.1); BASOPHILS % (AUTO) 0 % (0-1); EOSINOPHILS # (AUTO) 0.01 x10^3/uL (0-0.4); EOSINOPHILS % (AUTO) 0 % (1-7); LYMPHOCYTES # (AUTO) 0.53 x10^3/uL (1-3.4); LYMPHOCYTES % (AUTO) 4 % (22-44); MD NO; MEAN CORPUSCULAR HEMOGLOBIN 31.7 pg (27.0-34.8); MEAN CORPUSCULAR HGB CONC 34.1 g/dL (32.4-35.8); MEAN PLATELET VOLUME 8.2 fL (7.4-10.4); MONOCYTES # (AUTO) 0.42 x10^3/uL (0.2-0.8); MONOCYTES % (AUTO) 3 % (2-9); NEUTROPHILS # (AUTO) 11.17 x10^3/uL (1.8-6.8); NEUTROPHILS % (AUTO) 92 % (42-75); PLATELET COUNT 165 x10^3/uL (130-400); RED BLOOD COUNT 2.89 x10^6/uL (3.82-5.3); RED CELL DISTRIBUTION WIDTH 16.9 % (9.6-15.2)
[2018-08-25 22:05] LABS: INTERNATIONAL NORMALIZED RATIO 1.28 (0.93-1.1); PROTHROMBIN TIME 13.3 Seconds (9.6-11.5)
[2018-08-25 22:08] LABS: ALANINE AMINOTRANSFERASE 11 U/L (12-78); ALBUMIN 2.6 g/dL (3.4-5.0); ANION GAP 7 mmol/L (5-15); CALCIUM 8.4 mg/dL (8.5-10.1); CHLORIDE 96 mmol/L (98-107); CREATININE 6.83 mg/dL (0.55-1.02)
[2018-08-25 22:12] LABS: ALKALINE PHOSPHATASE 209 U/L (45-117); CREATINE KINASE, TOTAL 665 U/L (26-192); TOTAL PROTEIN 8.3 g/dL (6.4-8.2); TROPONIN I 0.048 ng/mL (0.000-0.045)
[2018-08-25] MEDS ORDERED: FUROSEMIDE 40 MG/4 ML IV ONE (23:00)
[2018-08-25] MEDS ORDERED: FUROSEMIDE 40 MG/4 ML ONE (23:02)
--- NOTE | 2018-08-25 23:18 | NUR ---
TASK RN: PT MEDICATED PER EMAR FOR ELEVATED BNP. K+ WNL. FAMILY AT BEDSIDE. PUREWICK APPLIED PT IS NON-AMBULATORY. BP/SPO2/ECG MONITORING IN PLACE. NSR ON MONITOR.
--- NOTE | 2018-08-25 23:56 | NUR ---
REPORT FROM TIFFANI MANCIA CARE OF PT
[2018-08-26] MEDS ORDERED: GABAPENTIN 300 MG CAPSULE PO PRN (00:30)
[2018-08-26] MEDS ORDERED: BISACODYL 10 MG SUPP PR PRN (00:30)
[2018-08-26] MEDS ORDERED: POLYETHYLENE GLYCOL 17 GM PACKET PO PRN (00:30)
--- NOTE | 2018-08-26 00:32 | NUR ---
REPORT TO CARINA PT TO [facility] WITH TECH
[2018-08-26 01:10] LABS: HEMOGLOBIN A1C 5.1 % (4.2-6.3)
[2018-08-26 01:46] VITALS: BP 92/59
[2018-08-26] MEDS ORDERED: ALBUTEROL SULFATE 2.5 MG/3 ML NPPB PRN (02:30)
[2018-08-26] MEDS: HEPARIN 5,000 UNITS/ML, 1ML SQ SCH ×3 (02:34→17:44)
[2018-08-26] MEDS: INSULIN LISPRO 100 UNITS/ML, PEN SQ-INSULIN SCH ×5 (02:35→20:31)
[2018-08-26 02:43] VITALS: BP 92/59
[2018-08-26 04:58] LABS: BASOPHILS # (AUTO) 0.02 x10^3/uL (0-0.1); BASOPHILS % (AUTO) 0 % (0-1); EOSINOPHILS # (AUTO) 0.02 x10^3/uL (0-0.4); EOSINOPHILS % (AUTO) 0 % (1-7); LYMPHOCYTES # (AUTO) 0.59 x10^3/uL (1-3.4); LYMPHOCYTES % (AUTO) 7 % (22-44); MD NO; MEAN CORPUSCULAR HEMOGLOBIN 31.8 pg (27.0-34.8); MEAN CORPUSCULAR HGB CONC 33.9 g/dL (32.4-35.8); MEAN CORPUSCULAR VOLUME 93.7 fL (80-100); MEAN PLATELET VOLUME 8.3 fL (7.4-10.4); MONOCYTES # (AUTO) 0.32 x10^3/uL (0.2-0.8); MONOCYTES % (AUTO) 4 % (2-9); NEUTROPHILS # (AUTO) 7.62 x10^3/uL (1.8-6.8); NEUTROPHILS % (AUTO) 89 % (42-75); PLATELET COUNT 156 x10^3/uL (130-400); RED BLOOD COUNT 2.82 x10^6/uL (3.82-5.3); RED CELL DISTRIBUTION WIDTH 17.2 % (9.6-15.2)
[2018-08-26 05:01] LABS: ALBUMIN 2.6 g/dL (3.4-5.0); ANION GAP 7 mmol/L (5-15); CALCIUM 8.3 mg/dL (8.5-10.1); CHLORIDE 97 mmol/L (98-107)
[2018-08-26 05:07] LABS: ALANINE AMINOTRANSFERASE 13 U/L (12-78); ALKALINE PHOSPHATASE 201 U/L (45-117); BILIRUBIN,TOTAL 1.7 mg/dL (0.2-1.0); CREATINE KINASE, TOTAL 520 U/L (26-192); CREATININE 7.07 mg/dL (0.55-1.02); TOTAL PROTEIN 8.1 g/dL (6.4-8.2); TROPONIN I 0.035 ng/mL (0.000-0.045)
[2018-08-26 07:00] VITALS: BP 107/69
[2018-08-26] MEDS: PANTOPROZOLE 40MG TABLET PO SCH (08:55)
[2018-08-26] MEDS: ASCORBIC ACID 500 MG TABLET PO SCH (08:55)
[2018-08-26] MEDS: CALCIUM/VITAMIN D3 250-125 TABLET PO SCH ×2 (08:55→20:30)
[2018-08-26] MEDS: FERROUS SULFATE 325 MG TABLET PO SCH ×2 (08:55→17:44)
[2018-08-26] MEDS: MULTIVITAMIN 1 TABLET PO SCH (08:56)
[2018-08-26] MEDS: ASPIRIN 81 MG TABLET EC PO SCH (08:56)
[2018-08-26] MEDS: SENNA/DOCUSATE TABLET PO SCH (08:56)
[2018-08-26] MEDS: FUROSEMIDE 40 MG/4 ML IV SCH ×2 (08:56→17:44)
[2018-08-26] MEDS: CARVEDILOL 6.25 MG TABLET PO SCH ×2 (08:56→20:23)
[2018-08-26] MEDS: SODIUM CHLORIDE FLUSH 10ML SYR IVF SCH ×2 (08:57→20:30)
[2018-08-26 12:07] LABS: CULTURE INDICATED? YES; MICROSCOPIC INDICATED
[2018-08-26 12:22] VITALS: BP 98/63
[2018-08-26] MEDS ORDERED: CEFTRIAXONE PMX 1GM/50ML 50 ML IV SCH (13:30)
[2018-08-26 19:09] VITALS: BP_SYST 76; BP_SYST 87; BP_DIAS 39; BP_DIAS 53
[2018-08-26] MEDS: GABAPENTIN 300 MG CAPSULE PO PRN (23:41)
[2018-08-27] MEDS: HEPARIN 5,000 UNITS/ML, 1ML SQ SCH ×3 (00:52→20:29)
[2018-08-27 01:17] VITALS: BP 104/69
[2018-08-27 06:17] LABS: ALBUMIN 2.4 g/dL (3.4-5.0); ANION GAP 6 mmol/L (5-15); CALCIUM 8.1 mg/dL (8.5-10.1); CHLORIDE 96 mmol/L (98-107)
[2018-08-27 06:20] LABS: ALANINE AMINOTRANSFERASE 13 U/L (12-78); ALKALINE PHOSPHATASE 183 U/L (45-117); BILIRUBIN,TOTAL 0.9 mg/dL (0.2-1.0); CREATININE 5.05 mg/dL (0.55-1.02); TOTAL PROTEIN 7.9 g/dL (6.4-8.2)
[2018-08-27] MEDS: INSULIN LISPRO 100 UNITS/ML, PEN SQ-INSULIN SCH ×4 (07:00→20:30)
[2018-08-27] MEDS: FUROSEMIDE 40 MG/4 ML IV SCH (07:30)
[2018-08-27 07:40] VITALS: BP 95/45
[2018-08-27] MEDS ORDERED: CARVEDILOL 3.125 MG TABLET PO SCH (09:00)
[2018-08-27] MEDS: SENNA/DOCUSATE TABLET PO SCH (09:00)
[2018-08-27] MEDS ORDERED: CEFDINIR 300 MG CAPSULE PO SCH ×2 (09:00→15:00)
[2018-08-27] MEDS: SODIUM CHLORIDE FLUSH 10ML SYR IVF SCH ×2 (09:00→20:29)
[2018-08-27 09:13] LABS: TROPONIN I < 0.015 ng/mL (0.000-0.045)
[2018-08-27] MEDS: FERROUS SULFATE 325 MG TABLET PO SCH ×2 (10:52→17:01)
[2018-08-27] MEDS: ASCORBIC ACID 500 MG TABLET PO SCH (10:52)
[2018-08-27] MEDS: CALCIUM/VITAMIN D3 250-125 TABLET PO SCH ×2 (10:52→20:29)
[2018-08-27] MEDS: PANTOPROZOLE 40MG TABLET PO SCH (10:53)
[2018-08-27] MEDS: ASPIRIN 81 MG TABLET EC PO SCH (10:53)
[2018-08-27] MEDS: MULTIVITAMIN 1 TABLET PO SCH (10:53)
[2018-08-27] MEDS: ARANESP 100 MCG/ML **ESRD SQ SCH (12:58)
[2018-08-27 15:53] VITALS: BP 93/54
[2018-08-27 17:40] LABS: FREE T4 (FREE THYROXINE) 1.48 ng/dL (0.76-1.46)
[2018-08-27 18:06] LABS: TROPONIN I < 0.015 ng/mL (0.000-0.045)
[2018-08-27 18:48] VITALS: BP 94/59
[2018-08-27 20:15] LABS: TROPONIN I < 0.015 ng/mL (0.000-0.045)
[2018-08-27] MEDS: CARVEDILOL 6.25 MG TABLET PO SCH (20:30)
[2018-08-27] MEDS: GABAPENTIN 300 MG CAPSULE PO PRN (20:57)
[2018-08-27] MEDS ORDERED: CEFDINIR 300 MG CAPSULE PO ONE (22:00)
[2018-08-27] MEDS: CYCLOBENZAPRINE 10 MG TABLET PO PRN (22:28)
[2018-08-28 01:18] VITALS: BP 102/61
[2018-08-28] MEDS: HEPARIN 5,000 UNITS/ML, 1ML SQ SCH ×2 (05:10→12:25)
[2018-08-28 05:25] LABS: BASOPHILS # (AUTO) 0.02 x10^3/uL (0-0.1); BASOPHILS % (AUTO) 0 % (0-1); EOSINOPHILS # (AUTO) 0.35 x10^3/uL (0-0.4); EOSINOPHILS % (AUTO) 8 % (1-7); LYMPHOCYTES # (AUTO) 0.67 x10^3/uL (1-3.4); LYMPHOCYTES % (AUTO) 16 % (22-44); MD NO; MEAN CORPUSCULAR HEMOGLOBIN 32.2 pg (27.0-34.8); MEAN CORPUSCULAR VOLUME 92.1 fL (80-100); MEAN PLATELET VOLUME 8.4 fL (7.4-10.4); MONOCYTES # (AUTO) 0.41 x10^3/uL (0.2-0.8); MONOCYTES % (AUTO) 10 % (2-9); NEUTROPHILS # (AUTO) 2.83 x10^3/uL (1.8-6.8); NEUTROPHILS % (AUTO) 66 % (42-75); PLATELET COUNT 139 x10^3/uL (130-400); RED BLOOD COUNT 2.78 x10^6/uL (3.82-5.3); RED CELL DISTRIBUTION WIDTH 16.5 % (9.6-15.2)
[2018-08-28 05:38] LABS: CALCIUM 7.8 mg/dL (8.5-10.1); CHLORIDE 95 mmol/L (98-107)
[2018-08-28 05:43] LABS: ALANINE AMINOTRANSFERASE 10 U/L (12-78); ALBUMIN 2.3 g/dL (3.4-5.0); ALKALINE PHOSPHATASE 176 U/L (45-117); ANION GAP 7 mmol/L (5-15); BILIRUBIN,TOTAL 0.7 mg/dL (0.2-1.0); CREATININE 4.04 mg/dL (0.55-1.02); TOTAL PROTEIN 7.8 g/dL (6.4-8.2)
[2018-08-28 06:40] VITALS: BP 97/62
[2018-08-28] MEDS: INSULIN LISPRO 100 UNITS/ML, PEN SQ-INSULIN SCH ×4 (07:00→20:41)
[2018-08-28] MEDS ORDERED: ASPIRIN 81 MG TABLET CHEW PO SCH (09:00)
[2018-08-28] MEDS: ASCORBIC ACID 500 MG TABLET PO SCH (09:37)
[2018-08-28] MEDS: ASPIRIN 81 MG TABLET EC PO SCH (09:37)
[2018-08-28] MEDS: CARVEDILOL 6.25 MG TABLET PO SCH ×2 (09:37→20:40)
[2018-08-28] MEDS: MULTIVITAMIN 1 TABLET PO SCH (09:37)
[2018-08-28] MEDS: CALCIUM/VITAMIN D3 250-125 TABLET PO SCH ×2 (09:37→20:40)
[2018-08-28] MEDS: SENNA/DOCUSATE TABLET PO SCH (09:37)
[2018-08-28] MEDS: PANTOPROZOLE 40MG TABLET PO SCH (09:37)
[2018-08-28] MEDS: SODIUM CHLORIDE FLUSH 10ML SYR IVF SCH ×2 (09:38→20:40)
[2018-08-28] MEDS: FERROUS SULFATE 325 MG TABLET PO SCH ×2 (09:42→16:32)
[2018-08-28 12:05] VITALS: BP 116/77
[2018-08-28] MEDS ORDERED: CEFDINIR 300 MG CAPSULE PO SCH (15:00)
[2018-08-28 20:00] VITALS: BP 125/78
[2018-08-28] MEDS: APIXABAN 5 MG TABLET PO SCH (20:39)
[2018-08-29 02:19] VITALS: BP 119/70
[2018-08-29 06:10] LABS: CHLORIDE 96 mmol/L (98-107)
[2018-08-29 06:25] LABS: ALANINE AMINOTRANSFERASE 9 U/L (12-78); ALBUMIN 2.4 g/dL (3.4-5.0); ALKALINE PHOSPHATASE 180 U/L (45-117); ANION GAP 8 mmol/L (5-15); BILIRUBIN,TOTAL 0.9 mg/dL (0.2-1.0); CALCIUM 8.2 mg/dL (8.5-10.1); CREATININE 5.24 mg/dL (0.55-1.02)
[2018-08-29] MEDS: SODIUM CHLORIDE FLUSH 10ML SYR IVF SCH ×2 (07:20→21:00)
[2018-08-29] MEDS: INSULIN LISPRO 100 UNITS/ML, PEN SQ-INSULIN SCH ×4 (07:39→22:24)
[2018-08-29] MEDS ORDERED: NITROFURANTOIN 5MG/ML ORAL SUSP PO SCH (08:00)
[2018-08-29 08:03] VITALS: BP 119/77
[2018-08-29] MEDS: SENNA/DOCUSATE TABLET PO SCH (09:00)
[2018-08-29] MEDS: APIXABAN 5 MG TABLET PO SCH ×2 (13:05→22:23)
[2018-08-29] MEDS: ASPIRIN 81 MG TABLET EC PO SCH (13:05)
[2018-08-29] MEDS: PANTOPROZOLE 40MG TABLET PO SCH (13:05)
[2018-08-29] MEDS: MULTIVITAMIN 1 TABLET PO SCH (13:06)
[2018-08-29] MEDS: ASCORBIC ACID 500 MG TABLET PO SCH (13:06)
[2018-08-29] MEDS: CALCIUM/VITAMIN D3 250-125 TABLET PO SCH ×2 (13:06→22:23)
[2018-08-29] MEDS: CARVEDILOL 12.5 MG TABLET PO SCH ×2 (13:07→22:23)
[2018-08-29] MEDS: GABAPENTIN 300 MG CAPSULE PO PRN ×2 (13:11→22:23)
[2018-08-29] MEDS: FERROUS SULFATE 325 MG TABLET PO SCH ×2 (13:11→17:45)
[2018-08-29 14:32] VITALS: BP 115/76
[2018-08-29] MEDS ORDERED: NITROFURANTOIN 50 MG CAPSULE PO SCH (16:00)
[2018-08-29 21:58] VITALS: BP 100/66
[2018-08-29] MEDS: DILTIAZEM 30 MG TABLET PO SCH (22:23)
[2018-08-29] MEDS: CEFDINIR 300 MG CAPSULE PO SCH (22:23)
[2018-08-30] MEDS: CYCLOBENZAPRINE 10 MG TABLET PO PRN (04:13)
[2018-08-30] MEDS: SODIUM CHLORIDE FLUSH 10ML SYR IVF SCH ×2 (08:38→21:44)
[2018-08-30] MEDS: INSULIN LISPRO 100 UNITS/ML, PEN SQ-INSULIN SCH ×4 (08:38→21:00)
[2018-08-30] MEDS: CALCIUM/VITAMIN D3 250-125 TABLET PO SCH ×2 (08:49→21:00)
[2018-08-30] MEDS: MULTIVITAMIN 1 TABLET PO SCH (08:49)
[2018-08-30] MEDS: ASCORBIC ACID 500 MG TABLET PO SCH (08:49)
[2018-08-30] MEDS: FERROUS SULFATE 325 MG TABLET PO SCH ×2 (08:49→16:30)
[2018-08-30] MEDS: SENNA/DOCUSATE TABLET PO SCH (08:49)
[2018-08-30] MEDS: APIXABAN 5 MG TABLET PO SCH ×2 (08:49→21:00)
[2018-08-30] MEDS: PANTOPROZOLE 40MG TABLET PO SCH (08:49)
[2018-08-30] MEDS: DILTIAZEM 30 MG TABLET PO SCH (08:49)
[2018-08-30] MEDS: CARVEDILOL 12.5 MG TABLET PO SCH ×2 (08:49→21:00)
[2018-08-30 12:33] VITALS: BP 117/81
[2018-08-30 18:51] VITALS: BP 119/78
[2018-08-30] MEDS: CEFDINIR 300 MG CAPSULE PO SCH (21:00)
[2018-08-31 01:21] VITALS: BP 126/81
[2018-08-31 07:34] VITALS: BP 125/71
[2018-08-31] MEDS: GABAPENTIN 300 MG CAPSULE PO PRN ×3 (07:50→20:52)
[2018-08-31] MEDS: SENNA/DOCUSATE TABLET PO SCH (07:51)
[2018-08-31] MEDS: FERROUS SULFATE 325 MG TABLET PO SCH ×2 (07:51→16:00)
[2018-08-31] MEDS: APIXABAN 5 MG TABLET PO SCH ×2 (07:51→20:32)
[2018-08-31] MEDS: MULTIVITAMIN 1 TABLET PO SCH (07:51)
[2018-08-31] MEDS: ASCORBIC ACID 500 MG TABLET PO SCH (07:51)
[2018-08-31] MEDS: CALCIUM/VITAMIN D3 250-125 TABLET PO SCH ×2 (07:51→20:31)
[2018-08-31] MEDS: PANTOPROZOLE 40MG TABLET PO SCH (07:51)
[2018-08-31] MEDS: CARVEDILOL 12.5 MG TABLET PO SCH ×2 (07:52→20:32)
[2018-08-31] MEDS: SODIUM CHLORIDE FLUSH 10ML SYR IVF SCH ×2 (07:53→20:31)
[2018-08-31] MEDS: DILTIAZEM 120 MG CAP.ER.24H PO SCH (07:59)
[2018-08-31] MEDS: INSULIN LISPRO 100 UNITS/ML, PEN SQ-INSULIN SCH ×4 (08:06→20:29)
[2018-08-31] MEDS ORDERED: DILTIAZEM 60 MG CAP.ER.12H PO SCH (09:00)
[2018-08-31 15:14] VITALS: BP 104/50
[2018-08-31] MEDS: CYCLOBENZAPRINE 10 MG TABLET PO PRN ×2 (15:59→20:51)
[2018-08-31] MEDS: ONDANSETRON ODT 4 MG PO PRN (17:28)
[2018-08-31 19:15] VITALS: BP 120/61
[2018-08-31] MEDS: CEFDINIR 300 MG CAPSULE PO SCH (20:32)
[2018-09-01 01:00] VITALS: BP 106/66
[2018-09-01] MEDS: GABAPENTIN 300 MG CAPSULE PO PRN ×2 (02:22→12:02)
[2018-09-01] MEDS: CYCLOBENZAPRINE 10 MG TABLET PO PRN (02:23)
[2018-09-01] MEDS: INSULIN LISPRO 100 UNITS/ML, PEN SQ-INSULIN SCH ×4 (07:00→20:33)
[2018-09-01 07:15] VITALS: BP 147/75
[2018-09-01] MEDS: CARVEDILOL 12.5 MG TABLET PO SCH ×2 (09:00→20:31)
[2018-09-01] MEDS: SODIUM CHLORIDE FLUSH 10ML SYR IVF SCH ×2 (09:00→20:32)
[2018-09-01 10:28] LABS: ALANINE AMINOTRANSFERASE 10 U/L (12-78); ALBUMIN 2.1 g/dL (3.4-5.0); ANION GAP 9 mmol/L (5-15); CALCIUM 8.3 mg/dL (8.5-10.1); CHLORIDE 95 mmol/L (98-107); CREATININE 4.94 mg/dL (0.55-1.02)
[2018-09-01 10:31] LABS: ALKALINE PHOSPHATASE 159 U/L (45-117); TOTAL PROTEIN 7.2 g/dL (6.4-8.2)
[2018-09-01] MEDS: DILTIAZEM 120 MG CAP.ER.24H PO SCH (12:02)
[2018-09-01] MEDS: PANTOPROZOLE 40MG TABLET PO SCH (12:03)
[2018-09-01] MEDS: CALCIUM/VITAMIN D3 250-125 TABLET PO SCH ×2 (12:03→20:31)
[2018-09-01] MEDS: MULTIVITAMIN 1 TABLET PO SCH (12:03)
[2018-09-01] MEDS: SENNA/DOCUSATE TABLET PO SCH (12:03)
[2018-09-01] MEDS: FERROUS SULFATE 325 MG TABLET PO SCH ×2 (12:03→15:59)
[2018-09-01] MEDS: APIXABAN 5 MG TABLET PO SCH ×2 (12:03→20:31)
[2018-09-01] MEDS: ASCORBIC ACID 500 MG TABLET PO SCH (12:04)
[2018-09-01 13:41] VITALS: BP 127/52
[2018-09-01 18:50] VITALS: BP 87/55
[2018-09-01 20:30] VITALS: BP 112/70
[2018-09-01] MEDS: CEFDINIR 300 MG CAPSULE PO SCH (20:31)
[2018-09-02 00:03] VITALS: BP 103/67
[2018-09-02] MEDS: CYCLOBENZAPRINE 10 MG TABLET PO PRN ×2 (03:16→22:17)
[2018-09-02 05:53] LABS: CHLORIDE 97 mmol/L (98-107)
[2018-09-02 05:57] LABS: BASOPHILS # (AUTO) 0.02 x10^3/uL (0-0.1); BASOPHILS % (AUTO) 1 % (0-1); EOSINOPHILS # (AUTO) 0.44 x10^3/uL (0-0.4); EOSINOPHILS % (AUTO) 11 % (1-7); LYMPHOCYTES # (AUTO) 0.76 x10^3/uL (1-3.4); LYMPHOCYTES % (AUTO) 19 % (22-44); MD NO; MEAN CORPUSCULAR HEMOGLOBIN 31.6 pg (27.0-34.8); MEAN CORPUSCULAR HGB CONC 34.3 g/dL (32.4-35.8); MEAN CORPUSCULAR VOLUME 92.2 fL (80-100); MEAN PLATELET VOLUME 8.3 fL (7.4-10.4); MONOCYTES # (AUTO) 0.38 x10^3/uL (0.2-0.8); MONOCYTES % (AUTO) 10 % (2-9); NEUTROPHILS # (AUTO) 2.42 x10^3/uL (1.8-6.8); NEUTROPHILS % (AUTO) 60 % (42-75); PLATELET COUNT 248 x10^3/uL (130-400); RED BLOOD COUNT 2.64 x10^6/uL (3.82-5.3); RED CELL DISTRIBUTION WIDTH 16.9 % (9.6-15.2)
[2018-09-02 05:58] LABS: ALANINE AMINOTRANSFERASE 13 U/L (12-78); ALBUMIN 2.1 g/dL (3.4-5.0); ALKALINE PHOSPHATASE 170 U/L (45-117); ANION GAP 6 mmol/L (5-15); BILIRUBIN,TOTAL 0.6 mg/dL (0.2-1.0); CALCIUM 8.3 mg/dL (8.5-10.1); CREATININE 4.54 mg/dL (0.55-1.02); TOTAL PROTEIN 7.5 g/dL (6.4-8.2)
[2018-09-02] MEDS: INSULIN LISPRO 100 UNITS/ML, PEN SQ-INSULIN SCH ×4 (07:00→21:37)
[2018-09-02 07:17] VITALS: BP 101/59
[2018-09-02] MEDS: CALCIUM/VITAMIN D3 250-125 TABLET PO SCH ×2 (08:44→21:33)
[2018-09-02] MEDS: FERROUS SULFATE 325 MG TABLET PO SCH ×2 (08:44→17:27)
[2018-09-02] MEDS: MULTIVITAMIN 1 TABLET PO SCH (08:44)
[2018-09-02] MEDS: CARVEDILOL 12.5 MG TABLET PO SCH ×2 (08:45→21:34)
[2018-09-02] MEDS: DILTIAZEM 120 MG CAP.ER.24H PO SCH (08:45)
[2018-09-02] MEDS: PANTOPROZOLE 40MG TABLET PO SCH (08:45)
[2018-09-02] MEDS: APIXABAN 5 MG TABLET PO SCH ×2 (08:45→21:33)
[2018-09-02] MEDS: ASCORBIC ACID 500 MG TABLET PO SCH (08:45)
[2018-09-02] MEDS: SENNA/DOCUSATE TABLET PO SCH (08:46)
[2018-09-02] MEDS: SODIUM CHLORIDE FLUSH 10ML SYR IVF SCH ×2 (08:46→21:35)
[2018-09-02] MEDS: GABAPENTIN 300 MG CAPSULE PO PRN (09:07)
[2018-09-02 12:28] VITALS: BP 107/61
[2018-09-02 18:40] VITALS: BP 99/63
[2018-09-02] MEDS: CEFDINIR 300 MG CAPSULE PO SCH (21:33)
[2018-09-03] VITALS: BP 114/72
[2018-09-03 07:00] VITALS: BP 106/64
[2018-09-03] MEDS: INSULIN LISPRO 100 UNITS/ML, PEN SQ-INSULIN SCH ×4 (07:59→22:06)
[2018-09-03] MEDS: GABAPENTIN 300 MG CAPSULE PO PRN ×2 (12:03→22:06)
[2018-09-03] MEDS: FERROUS SULFATE 325 MG TABLET PO SCH ×2 (12:05→18:00)
[2018-09-03] MEDS: ASCORBIC ACID 500 MG TABLET PO SCH (12:05)
[2018-09-03] MEDS: CALCIUM/VITAMIN D3 250-125 TABLET PO SCH ×2 (12:06→22:06)
[2018-09-03] MEDS: SENNA/DOCUSATE TABLET PO SCH (12:06)
[2018-09-03] MEDS: PANTOPROZOLE 40MG TABLET PO SCH (12:06)
[2018-09-03] MEDS: MULTIVITAMIN 1 TABLET PO SCH (12:06)
[2018-09-03] MEDS: CEFDINIR 300 MG CAPSULE PO SCH (12:06)
[2018-09-03] MEDS: SODIUM CHLORIDE FLUSH 10ML SYR IVF SCH ×2 (12:07→22:13)
[2018-09-03] MEDS: APIXABAN 5 MG TABLET PO SCH ×2 (12:07→22:23)
[2018-09-03] MEDS: CARVEDILOL 12.5 MG TABLET PO SCH ×2 (12:13→22:06)
[2018-09-03] MEDS: DILTIAZEM 120 MG CAP.ER.24H PO SCH (12:13)
[2018-09-03 13:20] VITALS: BP 107/69
[2018-09-03] MEDS: ARANESP 100 MCG/ML **ESRD SQ SCH (13:46)
[2018-09-03 15:57] LABS: TROPONIN I < 0.015 ng/mL (0.000-0.045)
[2018-09-03 18:45] VITALS: BP 81/45
[2018-09-03 19:32] LABS: TROPONIN I < 0.015 ng/mL (0.000-0.045)
[2018-09-03 22:12] VITALS: BP 121/68
[2018-09-04 00:27] VITALS: BP 98/61
[2018-09-04] MEDS: INSULIN LISPRO 100 UNITS/ML, PEN SQ-INSULIN SCH ×4 (07:00→20:10)
[2018-09-04 08:00] VITALS: BP 98/58
[2018-09-04] MEDS: ASCORBIC ACID 500 MG TABLET PO SCH (09:08)
[2018-09-04] MEDS: APIXABAN 5 MG TABLET PO SCH ×2 (09:10→20:10)
[2018-09-04] MEDS: CARVEDILOL 12.5 MG TABLET PO SCH ×2 (09:10→20:10)
[2018-09-04] MEDS: PANTOPROZOLE 40MG TABLET PO SCH (09:11)
[2018-09-04] MEDS: DILTIAZEM 120 MG CAP.ER.24H PO SCH (09:12)
[2018-09-04] MEDS: MULTIVITAMIN 1 TABLET PO SCH (09:12)
[2018-09-04] MEDS: SENNA/DOCUSATE TABLET PO SCH (09:13)
[2018-09-04] MEDS: CALCIUM/VITAMIN D3 250-125 TABLET PO SCH ×2 (09:14→20:10)
[2018-09-04] MEDS: FERROUS SULFATE 325 MG TABLET PO SCH ×2 (09:14→16:42)
[2018-09-04] MEDS: CYCLOBENZAPRINE 10 MG TABLET PO PRN (09:16)
[2018-09-04] MEDS: SODIUM CHLORIDE FLUSH 10ML SYR IVF SCH ×2 (09:17→20:10)
[2018-09-04 14:36] VITALS: BP 90/51
[2018-09-04 19:14] VITALS: BP 94/60
[2018-09-04] MEDS: CEFDINIR 300 MG CAPSULE PO SCH (20:10)
[2018-09-05 01:18] VITALS: BP 92/58
[2018-09-05] MEDS: INSULIN LISPRO 100 UNITS/ML, PEN SQ-INSULIN SCH ×4 (07:00→20:27)
[2018-09-05 07:02] VITALS: BP 108/58
[2018-09-05] MEDS: SODIUM CHLORIDE FLUSH 10ML SYR IVF SCH ×2 (09:00→20:35)
[2018-09-05] MEDS: CARVEDILOL 12.5 MG TABLET PO SCH ×4 (09:00→21:00)
[2018-09-05] MEDS: DILTIAZEM 120 MG CAP.ER.24H PO SCH ×2 (09:00→11:59)
[2018-09-05] MEDS: SENNA/DOCUSATE TABLET PO SCH (11:58)
[2018-09-05] MEDS: FERROUS SULFATE 325 MG TABLET PO SCH ×2 (11:58→16:30)
[2018-09-05] MEDS: APIXABAN 5 MG TABLET PO SCH ×2 (11:58→20:26)
[2018-09-05] MEDS: MULTIVITAMIN 1 TABLET PO SCH (11:58)
[2018-09-05] MEDS: ASCORBIC ACID 500 MG TABLET PO SCH (11:58)
[2018-09-05] MEDS: PANTOPROZOLE 40MG TABLET PO SCH (11:58)
[2018-09-05] MEDS: CALCIUM/VITAMIN D3 250-125 TABLET PO SCH ×2 (11:59→20:27)
[2018-09-05 12:07] VITALS: BP 99/64
[2018-09-05 21:05] VITALS: BP 100/61
[2018-09-06 00:41] VITALS: BP 104/59
[2018-09-06] MEDS: INSULIN LISPRO 100 UNITS/ML, PEN SQ-INSULIN SCH ×4 (07:00→20:12)
[2018-09-06 07:18] VITALS: BP 142/70
[2018-09-06] MEDS: PANTOPROZOLE 40MG TABLET PO SCH (07:31)
[2018-09-06] MEDS: SENNA/DOCUSATE TABLET PO SCH (07:31)
[2018-09-06] MEDS: APIXABAN 5 MG TABLET PO SCH ×2 (07:31→20:23)
[2018-09-06] MEDS: MULTIVITAMIN 1 TABLET PO SCH (07:31)
[2018-09-06] MEDS: ASCORBIC ACID 500 MG TABLET PO SCH (07:31)
[2018-09-06] MEDS: FERROUS SULFATE 325 MG TABLET PO SCH ×2 (07:32→16:31)
[2018-09-06] MEDS: CARVEDILOL 12.5 MG TABLET PO SCH ×2 (07:32→20:23)
[2018-09-06] MEDS: DILTIAZEM 120 MG CAP.ER.24H PO SCH (07:32)
[2018-09-06] MEDS: CALCIUM/VITAMIN D3 250-125 TABLET PO SCH ×2 (07:32→20:23)
[2018-09-06] MEDS: SODIUM CHLORIDE FLUSH 10ML SYR IVF SCH ×2 (07:35→20:23)
[2018-09-06] MEDS: ONDANSETRON ODT 4 MG PO PRN ×2 (08:49→20:31)
[2018-09-06 12:25] VITALS: BP 102/63
[2018-09-06 20:20] VITALS: BP 125/54
[2018-09-07 02:13] VITALS: BP 116/71
[2018-09-07 04:14] LABS: MEAN CORPUSCULAR HEMOGLOBIN 31.1 pg (27.0-34.8); MEAN CORPUSCULAR HGB CONC 33.6 g/dL (32.4-35.8); MEAN CORPUSCULAR VOLUME 92.5 fL (80-100); MEAN PLATELET VOLUME 8.3 fL (7.4-10.4); PLATELET COUNT 202 x10^3/uL (130-400); RED BLOOD COUNT 2.18 x10^6/uL (3.82-5.3); RED CELL DISTRIBUTION WIDTH 17.8 % (9.6-15.2)
[2018-09-07 04:26] LABS: CHLORIDE 95 mmol/L (98-107)
[2018-09-07 04:32] LABS: ALBUMIN 2.3 g/dL (3.4-5.0); ANION GAP 6 mmol/L (5-15); CALCIUM 8.5 mg/dL (8.5-10.1)
[2018-09-07 04:58] LABS: BASOPHILS # (AUTO) 0.04 x10^3/uL (0-0.1); BASOPHILS % (AUTO) 1 % (0-1); EOSINOPHILS # (AUTO) 0.35 x10^3/uL (0-0.4); EOSINOPHILS % (AUTO) 7 % (1-7); LYMPHOCYTES # (AUTO) 0.99 x10^3/uL (1-3.4); LYMPHOCYTES % (AUTO) 19 % (22-44); MD SCAN; MONOCYTES # (AUTO) 0.54 x10^3/uL (0.2-0.8); MONOCYTES % (AUTO) 10 % (2-9); NEUTROPHILS # (AUTO) 3.36 x10^3/uL (1.8-6.8); NEUTROPHILS % (AUTO) 64 % (42-75)
[2018-09-07] MEDS: INSULIN LISPRO 100 UNITS/ML, PEN SQ-INSULIN SCH ×4 (07:00→20:43)
[2018-09-07 07:25] VITALS: BP 105/64
[2018-09-07] MEDS: PANTOPRAZOLE 40 MG IV IVPush SCH ×3 (08:00→20:54)
[2018-09-07] MEDS: FERROUS SULFATE 325 MG TABLET PO SCH ×2 (08:00→17:23)
[2018-09-07] MEDS: CALCIUM/VITAMIN D3 250-125 TABLET PO SCH ×3 (09:00→20:54)
[2018-09-07] MEDS: DILTIAZEM 120 MG CAP.ER.24H PO SCH (09:00)
[2018-09-07] MEDS: ASCORBIC ACID 500 MG TABLET PO SCH (09:00)
[2018-09-07] MEDS: SENNA/DOCUSATE TABLET PO SCH (09:00)
[2018-09-07] MEDS: CARVEDILOL 12.5 MG TABLET PO SCH ×3 (09:00→20:54)
[2018-09-07] MEDS: SODIUM CHLORIDE FLUSH 10ML SYR IVF SCH ×2 (09:00→20:47)
[2018-09-07] MEDS: MULTIVITAMIN 1 TABLET PO SCH (09:00)
[2018-09-07] MEDS: GABAPENTIN 300 MG CAPSULE PO PRN (13:00)
[2018-09-07 14:00] VITALS: BP 93/58
[2018-09-07] MEDS ORDERED: ANTI INHIBITOR COAGULANT COMP IVPB ONE (14:00)
[2018-09-07] MEDS: CYCLOBENZAPRINE 10 MG TABLET PO PRN (15:16)
[2018-09-07] MEDS: ONDANSETRON ODT 4 MG PO PRN (15:18)
[2018-09-07 15:56] LABS: ANION GAP 7 mmol/L (5-15); CALCIUM 8.8 mg/dL (8.5-10.1); CHLORIDE 95 mmol/L (98-107); CREATININE 5.47 mg/dL (0.55-1.02)
[2018-09-07 19:49] VITALS: BP 132/77
[2018-09-08 00:55] VITALS: BP 111/61
[2018-09-08 01:18] LABS: ALANINE AMINOTRANSFERASE 13 U/L (12-78); ALBUMIN 2.4 g/dL (3.4-5.0); ANION GAP 8 mmol/L (5-15); CALCIUM 8.7 mg/dL (8.5-10.1); CHLORIDE 94 mmol/L (98-107); CREATININE 5.84 mg/dL (0.55-1.02)
[2018-09-08 01:20] LABS: ALKALINE PHOSPHATASE 148 U/L (45-117); BILIRUBIN,TOTAL 0.5 mg/dL (0.2-1.0); TOTAL PROTEIN 7.6 g/dL (6.4-8.2)
[2018-09-08 06:56] VITALS: BP 99/63
[2018-09-08] MEDS: INSULIN LISPRO 100 UNITS/ML, PEN SQ-INSULIN SCH ×4 (07:00→21:00)
[2018-09-08] MEDS: DILTIAZEM 120 MG CAP.ER.24H PO SCH (07:45)
[2018-09-08] MEDS: CARVEDILOL 12.5 MG TABLET PO SCH ×2 (07:45→21:00)
[2018-09-08] MEDS: PANTOPRAZOLE 40 MG IV IVPush SCH ×2 (08:00→21:41)
[2018-09-08] MEDS: FERROUS SULFATE 325 MG TABLET PO SCH ×2 (08:00→16:48)
[2018-09-08 08:20] LABS: MEAN CORPUSCULAR HEMOGLOBIN 30.4 pg (27.0-34.8); MEAN CORPUSCULAR HGB CONC 33.6 g/dL (32.4-35.8); MEAN CORPUSCULAR VOLUME 90.2 fL (80-100); MEAN PLATELET VOLUME 7.7 fL (7.4-10.4); PLATELET COUNT 203 x10^3/uL (130-400); RED BLOOD COUNT 2.21 x10^6/uL (3.82-5.3); RED CELL DISTRIBUTION WIDTH 17.3 % (9.6-15.2)
[2018-09-08] MEDS ORDERED: SODIUM POLYSTYRENE SULFONATE ORAL SUSP PO ONE (08:30)
[2018-09-08] MEDS: MULTIVITAMIN 1 TABLET PO SCH (09:00)
[2018-09-08] MEDS: ASCORBIC ACID 500 MG TABLET PO SCH (09:00)
[2018-09-08] MEDS: SENNA/DOCUSATE TABLET PO SCH (09:00)
[2018-09-08] MEDS: SODIUM CHLORIDE FLUSH 10ML SYR IVF SCH ×2 (09:00→21:43)
[2018-09-08] MEDS: DILTIAZEM 60 MG TABLET PO SCH (09:00)
[2018-09-08] MEDS: CALCIUM/VITAMIN D3 250-125 TABLET PO SCH ×2 (09:00→21:40)
[2018-09-08 09:39] LABS: BASOPHILS # (AUTO) 0.06 x10^3/uL (0-0.1); BASOPHILS % (AUTO) 1 % (0-1); EOSINOPHILS # (AUTO) 0.06 x10^3/uL (0-0.4); EOSINOPHILS % (AUTO) 1 % (1-7); LYMPHOCYTES # (AUTO) 0.78 x10^3/uL (1-3.4); LYMPHOCYTES % (AUTO) 13 % (22-44); MD SCAN; MONOCYTES # (AUTO) 0.51 x10^3/uL (0.2-0.8); MONOCYTES % (AUTO) 8 % (2-9); NEUTROPHILS # (AUTO) 4.71 x10^3/uL (1.8-6.8); NEUTROPHILS % (AUTO) 77 % (42-75)
[2018-09-08] MEDS ORDERED: CYCLOBENZAPRINE 10 MG TABLET PO PRN (10:30)
[2018-09-08] MEDS: LIDODERM 5% PATCH TD SCH (12:28)
[2018-09-08] MEDS: GABAPENTIN 300 MG CAPSULE PO PRN (15:18)
[2018-09-08 19:10] VITALS: BP 104/65
[2018-09-08 21:52] VITALS: BP 100/66
[2018-09-09] VITALS (9 sets, daily range): BP systolic 108–126; BP diastolic 59–75
[2018-09-09] MEDS: GABAPENTIN 300 MG CAPSULE PO PRN (01:49)
[2018-09-09] MEDS: INSULIN LISPRO 100 UNITS/ML, PEN SQ-INSULIN SCH ×4 (07:00→21:00)
[2018-09-09] MEDS: SENNA/DOCUSATE TABLET PO SCH (09:00)
[2018-09-09] MEDS: SODIUM CHLORIDE FLUSH 10ML SYR IVF SCH ×2 (09:00→20:59)
[2018-09-09] MEDS: CALCIUM/VITAMIN D3 250-125 TABLET PO SCH ×2 (09:56→21:00)
[2018-09-09] MEDS: ASCORBIC ACID 500 MG TABLET PO SCH (09:56)
[2018-09-09] MEDS: PANTOPRAZOLE 40 MG IV IVPush SCH ×2 (09:56→20:59)
[2018-09-09] MEDS: MULTIVITAMIN 1 TABLET PO SCH (09:57)
[2018-09-09] MEDS: FERROUS SULFATE 325 MG TABLET PO SCH ×2 (09:57→18:41)
[2018-09-09] MEDS: DILTIAZEM 60 MG TABLET PO SCH (09:57)
[2018-09-09] MEDS: CARVEDILOL 12.5 MG TABLET PO SCH (09:57)
[2018-09-09] MEDS: LIDODERM 5% PATCH TD SCH (09:58)
[2018-09-10] MEDS: GABAPENTIN 300 MG CAPSULE PO PRN ×2 (00:19→12:58)
[2018-09-10 00:48] VITALS: BP 103/62
[2018-09-10] MEDS: INSULIN LISPRO 100 UNITS/ML, PEN SQ-INSULIN SCH ×4 (07:00→20:59)
[2018-09-10 07:02] LABS: CALCIUM 8.1 mg/dL (8.5-10.1); CHLORIDE 93 mmol/L (98-107)
[2018-09-10 07:05] LABS: MEAN CORPUSCULAR HGB CONC 33.9 g/dL (32.4-35.8); MEAN CORPUSCULAR VOLUME 91.6 fL (80-100); MEAN PLATELET VOLUME 8.3 fL (7.4-10.4); PLATELET COUNT 194 x10^3/uL (130-400); RED BLOOD COUNT 2.25 x10^6/uL (3.82-5.3); RED CELL DISTRIBUTION WIDTH 17.9 % (9.6-15.2)
[2018-09-10 07:06] LABS: ALANINE AMINOTRANSFERASE 9 U/L (12-78); ALKALINE PHOSPHATASE 121 U/L (45-117); ANION GAP 8 mmol/L (5-15); BILIRUBIN,TOTAL 0.9 mg/dL (0.2-1.0); CREATININE 5.39 mg/dL (0.55-1.02); TOTAL PROTEIN 7.3 g/dL (6.4-8.2)
[2018-09-10 07:23] VITALS: BP 139/60
[2018-09-10 07:37] LABS: BASOPHILS # (AUTO) 0.03 x10^3/uL (0-0.1); BASOPHILS % (AUTO) 1 % (0-1); EOSINOPHILS # (AUTO) 0.19 x10^3/uL (0-0.4); EOSINOPHILS % (AUTO) 4 % (1-7); LYMPHOCYTES # (AUTO) 0.79 x10^3/uL (1-3.4); LYMPHOCYTES % (AUTO) 18 % (22-44); MD SCAN; MONOCYTES # (AUTO) 0.52 x10^3/uL (0.2-0.8); MONOCYTES % (AUTO) 12 % (2-9); NEUTROPHILS # (AUTO) 2.87 x10^3/uL (1.8-6.8); NEUTROPHILS % (AUTO) 65 % (42-75)
[2018-09-10] MEDS: PANTOPRAZOLE 40 MG IV IVPush SCH (08:00)
[2018-09-10] MEDS: FERROUS SULFATE 325 MG TABLET PO SCH ×2 (08:00→15:59)
[2018-09-10] MEDS: SODIUM CHLORIDE FLUSH 10ML SYR IVF SCH ×2 (08:51→20:59)
[2018-09-10] MEDS: ARANESP 100 MCG/ML **ESRD SQ SCH (08:52)
[2018-09-10] MEDS: ASCORBIC ACID 500 MG TABLET PO SCH (08:52)
[2018-09-10] MEDS: SENNA/DOCUSATE TABLET PO SCH (08:52)
[2018-09-10] MEDS: CALCIUM/VITAMIN D3 250-125 TABLET PO SCH ×2 (08:52→20:59)
[2018-09-10] MEDS: MULTIVITAMIN 1 TABLET PO SCH (08:52)
[2018-09-10] MEDS: LIDODERM 5% PATCH TD SCH (08:52)
[2018-09-10 09:45] VITALS: BP 115/48
[2018-09-10 10:00] VITALS: BP 114/54
[2018-09-10 12:39] VITALS: BP 125/70
[2018-09-10] MEDS: METOPROLOL TARTRATE 25 MG TABLET PO SCH ×2 (15:59→16:02)
[2018-09-10] MEDS: PANTOPROZOLE 40MG TABLET PO SCH (16:02)
[2018-09-10 17:40] LABS: MEAN CORPUSCULAR HEMOGLOBIN 31.3 pg (27.0-34.8); MEAN CORPUSCULAR HGB CONC 34.3 g/dL (32.4-35.8); MEAN CORPUSCULAR VOLUME 91.3 fL (80-100); MEAN PLATELET VOLUME 7.9 fL (7.4-10.4); PLATELET COUNT 194 x10^3/uL (130-400); RED BLOOD COUNT 2.67 x10^6/uL (3.82-5.3); RED CELL DISTRIBUTION WIDTH 17.4 % (9.6-15.2)
[2018-09-10 18:18] LABS: BASOPHILS # (AUTO) 0.03 x10^3/uL (0-0.1); BASOPHILS % (AUTO) 1 % (0-1); EOSINOPHILS # (AUTO) 0.18 x10^3/uL (0-0.4); EOSINOPHILS % (AUTO) 4 % (1-7); LYMPHOCYTES # (AUTO) 0.57 x10^3/uL (1-3.4); LYMPHOCYTES % (AUTO) 14 % (22-44); MD SCAN; MONOCYTES # (AUTO) 0.37 x10^3/uL (0.2-0.8); MONOCYTES % (AUTO) 9 % (2-9); NEUTROPHILS # (AUTO) 2.88 x10^3/uL (1.8-6.8); NEUTROPHILS % (AUTO) 72 % (42-75)
[2018-09-10 21:05] VITALS: BP 115/73
[2018-09-11 00:49] VITALS: BP 125/62
[2018-09-11 05:49] VITALS: BP 120/78
[2018-09-11] MEDS: PANTOPROZOLE 40MG TABLET PO SCH ×2 (05:50→17:00)
[2018-09-11] MEDS: METOPROLOL TARTRATE 25 MG TABLET PO SCH ×2 (05:50→18:00)
[2018-09-11 05:52] LABS: BASOPHILS # (AUTO) 0.04 x10^3/uL (0-0.1); BASOPHILS % (AUTO) 1 % (0-1); EOSINOPHILS # (AUTO) 0.22 x10^3/uL (0-0.4); EOSINOPHILS % (AUTO) 5 % (1-7); LYMPHOCYTES # (AUTO) 0.61 x10^3/uL (1-3.4); LYMPHOCYTES % (AUTO) 14 % (22-44); MD NO; MEAN CORPUSCULAR HEMOGLOBIN 31.5 pg (27.0-34.8); MEAN CORPUSCULAR HGB CONC 34.3 g/dL (32.4-35.8); MEAN CORPUSCULAR VOLUME 91.6 fL (80-100); MONOCYTES # (AUTO) 0.43 x10^3/uL (0.2-0.8); MONOCYTES % (AUTO) 10 % (2-9); NEUTROPHILS # (AUTO) 3.03 x10^3/uL (1.8-6.8); NEUTROPHILS % (AUTO) 70 % (42-75); PLATELET COUNT 194 x10^3/uL (130-400); RED BLOOD COUNT 2.57 x10^6/uL (3.82-5.3)
[2018-09-11 05:56] LABS: ALBUMIN 1.9 g/dL (3.4-5.0); ANION GAP 7 mmol/L (5-15); CALCIUM 8.1 mg/dL (8.5-10.1); CHLORIDE 97 mmol/L (98-107)
[2018-09-11 06:00] LABS: ALANINE AMINOTRANSFERASE 10 U/L (12-78); ALKALINE PHOSPHATASE 120 U/L (45-117); BILIRUBIN,TOTAL 0.9 mg/dL (0.2-1.0); CREATININE 4.23 mg/dL (0.55-1.02); TOTAL PROTEIN 7.2 g/dL (6.4-8.2)
[2018-09-11] MEDS: INSULIN LISPRO 100 UNITS/ML, PEN SQ-INSULIN SCH ×4 (07:00→20:46)
[2018-09-11 07:32] VITALS: BP 110/69
[2018-09-11] MEDS: SODIUM CHLORIDE FLUSH 10ML SYR IVF SCH ×2 (09:00→21:03)
[2018-09-11] MEDS: LIDODERM 5% PATCH TD SCH (10:33)
[2018-09-11] MEDS: SENNA/DOCUSATE TABLET PO SCH (10:33)
[2018-09-11] MEDS: MULTIVITAMIN 1 TABLET PO SCH (10:33)
[2018-09-11] MEDS: ASCORBIC ACID 500 MG TABLET PO SCH (10:34)
[2018-09-11] MEDS: GABAPENTIN 300 MG CAPSULE PO PRN (10:34)
[2018-09-11] MEDS: CALCIUM/VITAMIN D3 250-125 TABLET PO SCH ×2 (10:34→21:03)
[2018-09-11] MEDS: FERROUS SULFATE 325 MG TABLET PO SCH ×2 (10:34→17:00)
[2018-09-11 19:44] VITALS: BP 127/80
[2018-09-12 02:49] VITALS: BP 110/71
[2018-09-12 05:50] VITALS: BP 109/73
[2018-09-12] MEDS: METOPROLOL TARTRATE 25 MG TABLET PO SCH ×2 (05:53→18:00)
[2018-09-12] MEDS: PANTOPROZOLE 40MG TABLET PO SCH ×2 (05:53→17:00)
[2018-09-12 06:54] LABS: BASOPHILS # (AUTO) 0.03 x10^3/uL (0-0.1); BASOPHILS % (AUTO) 1 % (0-1); EOSINOPHILS # (AUTO) 0.24 x10^3/uL (0-0.4); EOSINOPHILS % (AUTO) 6 % (1-7); LYMPHOCYTES # (AUTO) 0.67 x10^3/uL (1-3.4); LYMPHOCYTES % (AUTO) 17 % (22-44); MD NO; MEAN CORPUSCULAR HEMOGLOBIN 30.2 pg (27.0-34.8); MEAN CORPUSCULAR HGB CONC 33.2 g/dL (32.4-35.8); MEAN CORPUSCULAR VOLUME 90.8 fL (80-100); MEAN PLATELET VOLUME 8.1 fL (7.4-10.4); MONOCYTES # (AUTO) 0.42 x10^3/uL (0.2-0.8); MONOCYTES % (AUTO) 11 % (2-9); NEUTROPHILS # (AUTO) 2.61 x10^3/uL (1.8-6.8); NEUTROPHILS % (AUTO) 66 % (42-75); PLATELET COUNT 198 x10^3/uL (130-400); RED BLOOD COUNT 2.59 x10^6/uL (3.82-5.3); RED CELL DISTRIBUTION WIDTH 16.8 % (9.6-15.2)
[2018-09-12] MEDS: INSULIN LISPRO 100 UNITS/ML, PEN SQ-INSULIN SCH ×4 (07:00→22:08)
[2018-09-12 07:48] VITALS: BP 118/55
[2018-09-12] MEDS: FERROUS SULFATE 325 MG TABLET PO SCH ×2 (08:00→17:00)
[2018-09-12] MEDS: LIDODERM 5% PATCH TD SCH (08:44)
[2018-09-12] MEDS: SENNA/DOCUSATE TABLET PO SCH (09:00)
[2018-09-12] MEDS: ASCORBIC ACID 500 MG TABLET PO SCH (09:00)
[2018-09-12] MEDS: CALCIUM/VITAMIN D3 250-125 TABLET PO SCH ×2 (09:00→22:06)
[2018-09-12] MEDS: MULTIVITAMIN 1 TABLET PO SCH (09:00)
[2018-09-12] MEDS: SODIUM CHLORIDE FLUSH 10ML SYR IVF SCH ×2 (09:00→22:07)
[2018-09-12] MEDS: ONDANSETRON ODT 4 MG PO PRN (09:01)
[2018-09-12 13:23] VITALS: BP 121/75
[2018-09-12] MEDS ORDERED: OXYcodone/APAP 5/325MG TABLET ONE (14:55)
[2018-09-12] MEDS: OXYcodone/APAP 5/325MG TABLET PO PRN (15:02)
--- NOTE | 2018-09-12 16:15 | NUR ---
Activity sheet posted in patient's room with RN and patient aware of plan Addendum: 09/12/18 at 1615 by Dejuan Stevens PT Amended: Links added.
[2018-09-12 20:55] VITALS: BP 117/76
[2018-09-12] MEDS: LIDODERM REMOVE PATCH NOTE XX SCH (22:07)
[2018-09-13] VITALS (7 sets, daily range): BP systolic 94–171; BP diastolic 47–78
[2018-09-13] MEDS: GABAPENTIN 300 MG CAPSULE PO PRN (04:24)
[2018-09-13] MEDS: PANTOPROZOLE 40MG TABLET PO SCH ×2 (05:33→17:10)
[2018-09-13] MEDS: METOPROLOL TARTRATE 25 MG TABLET PO SCH ×2 (06:47→18:38)
[2018-09-13] MEDS: INSULIN LISPRO 100 UNITS/ML, PEN SQ-INSULIN SCH ×4 (07:00→19:41)
[2018-09-13] MEDS: LIDODERM 5% PATCH TD SCH (09:05)
[2018-09-13] MEDS: MULTIVITAMIN 1 TABLET PO SCH (09:06)
[2018-09-13] MEDS: ASCORBIC ACID 500 MG TABLET PO SCH (09:06)
[2018-09-13] MEDS: FERROUS SULFATE 325 MG TABLET PO SCH ×2 (09:06→17:10)
[2018-09-13] MEDS: CALCIUM/VITAMIN D3 250-125 TABLET PO SCH ×2 (09:06→20:02)
[2018-09-13] MEDS: SENNA/DOCUSATE TABLET PO SCH ×2 (09:08→17:08)
[2018-09-13] MEDS: SODIUM CHLORIDE FLUSH 10ML SYR IVF SCH ×2 (09:08→20:02)
[2018-09-13] MEDS: LIDODERM REMOVE PATCH NOTE XX SCH (20:04)
[2018-09-13 20:16] LABS: OCCULT BLOOD POSITIVE (NEGATIVE)
[2018-09-14 04:06] VITALS: BP 103/62
[2018-09-14] MEDS: METOPROLOL TARTRATE 25 MG TABLET PO SCH (05:46)
[2018-09-14] MEDS: PANTOPROZOLE 40MG TABLET PO SCH ×2 (05:46→16:59)
[2018-09-14] MEDS: METOPROLOL TARTRATE 50 MG TABLET PO SCH ×2 (06:00→17:30)
[2018-09-14 06:56] LABS: BASOPHILS # (AUTO) 0.02 x10^3/uL (0-0.1); BASOPHILS % (AUTO) 0 % (0-1); EOSINOPHILS # (AUTO) 0.37 x10^3/uL (0-0.4); EOSINOPHILS % (AUTO) 9 % (1-7); LYMPHOCYTES # (AUTO) 0.89 x10^3/uL (1-3.4); LYMPHOCYTES % (AUTO) 23 % (22-44); MD NO; MEAN CORPUSCULAR HEMOGLOBIN 29.6 pg (27.0-34.8); MEAN CORPUSCULAR HGB CONC 32.9 g/dL (32.4-35.8); MEAN PLATELET VOLUME 7.8 fL (7.4-10.4); MONOCYTES # (AUTO) 0.45 x10^3/uL (0.2-0.8); MONOCYTES % (AUTO) 12 % (2-9); NEUTROPHILS % (AUTO) 56 % (42-75); PLATELET COUNT 179 x10^3/uL (130-400); RED BLOOD COUNT 2.58 x10^6/uL (3.82-5.3); RED CELL DISTRIBUTION WIDTH 16.7 % (9.6-15.2)
[2018-09-14] MEDS: INSULIN LISPRO 100 UNITS/ML, PEN SQ-INSULIN SCH ×4 (07:00→22:19)
[2018-09-14 07:26] VITALS: BP 102/67
[2018-09-14] MEDS: LIDODERM 5% PATCH TD SCH (07:48)
[2018-09-14] MEDS: MULTIVITAMIN 1 TABLET PO SCH (07:49)
[2018-09-14] MEDS: SENNA/DOCUSATE TABLET PO SCH (07:49)
[2018-09-14] MEDS: SODIUM CHLORIDE FLUSH 10ML SYR IVF SCH ×2 (07:49→22:18)
[2018-09-14] MEDS: FERROUS SULFATE 325 MG TABLET PO SCH ×2 (07:49→16:59)
[2018-09-14] MEDS: CALCIUM/VITAMIN D3 250-125 TABLET PO SCH ×2 (07:49→22:18)
[2018-09-14] MEDS: ASCORBIC ACID 500 MG TABLET PO SCH (07:49)
[2018-09-14 14:42] VITALS: BP 115/73
[2018-09-14 17:16] VITALS: BP 95/66
[2018-09-14] MEDS ORDERED: METOPROLOL TARTRATE 50 MG TABLET PO SCH (18:00)
[2018-09-14 19:25] VITALS: BP 119/55
[2018-09-14] MEDS: LIDODERM REMOVE PATCH NOTE XX SCH (22:19)
[2018-09-14] MEDS: OXYcodone/APAP 5/325MG TABLET PO PRN (22:25)
[2018-09-15] MEDS: GABAPENTIN 300 MG CAPSULE PO PRN (00:16)
[2018-09-15 02:10] VITALS: BP 117/62
[2018-09-15] MEDS: OXYcodone/APAP 5/325MG TABLET PO PRN ×2 (04:31→15:16)
[2018-09-15 05:51] LABS: ALBUMIN 2.1 g/dL (3.4-5.0); ANION GAP 7 mmol/L (5-15); CALCIUM 8.1 mg/dL (8.5-10.1); CHLORIDE 94 mmol/L (98-107); CREATININE 5.87 mg/dL (0.55-1.02)
[2018-09-15] MEDS: PANTOPROZOLE 40MG TABLET PO SCH ×2 (06:13→18:06)
[2018-09-15] MEDS: METOPROLOL TARTRATE 50 MG TABLET PO SCH ×2 (06:14→18:06)
[2018-09-15] MEDS: INSULIN LISPRO 100 UNITS/ML, PEN SQ-INSULIN SCH ×4 (07:00→20:56)
[2018-09-15 08:36] VITALS: BP 104/57
[2018-09-15] MEDS: LIDODERM 5% PATCH TD SCH (12:52)
[2018-09-15] MEDS: MULTIVITAMIN 1 TABLET PO SCH (12:52)
[2018-09-15] MEDS: ASCORBIC ACID 500 MG TABLET PO SCH (12:52)
[2018-09-15] MEDS: SENNA/DOCUSATE TABLET PO SCH (12:52)
[2018-09-15] MEDS: CALCIUM/VITAMIN D3 250-125 TABLET PO SCH ×2 (12:52→20:58)
[2018-09-15] MEDS: FERROUS SULFATE 325 MG TABLET PO SCH ×2 (12:58→18:06)
[2018-09-15] MEDS: SODIUM CHLORIDE FLUSH 10ML SYR IVF SCH ×2 (12:58→20:58)
[2018-09-15 15:35] VITALS: BP 112/58
[2018-09-15 18:05] VITALS: BP 112/57
[2018-09-15 20:39] VITALS: BP 109/49
[2018-09-15] MEDS: LIDODERM REMOVE PATCH NOTE XX SCH (20:59)
[2018-09-16] MEDS: OXYcodone/APAP 5/325MG TABLET PO PRN ×4 (03:08→23:43)
[2018-09-16 06:01] VITALS: BP 104/52
[2018-09-16] MEDS: PANTOPROZOLE 40MG TABLET PO SCH ×2 (06:04→17:09)
[2018-09-16] MEDS: METOPROLOL TARTRATE 50 MG TABLET PO SCH ×2 (06:04→17:09)
[2018-09-16] MEDS: INSULIN LISPRO 100 UNITS/ML, PEN SQ-INSULIN SCH ×4 (07:00→20:32)
[2018-09-16 08:10] VITALS: BP 94/60
[2018-09-16] MEDS: SENNA/DOCUSATE TABLET PO SCH (09:33)
[2018-09-16] MEDS: CALCIUM/VITAMIN D3 250-125 TABLET PO SCH ×2 (09:33→21:15)
[2018-09-16] MEDS: ASCORBIC ACID 500 MG TABLET PO SCH (09:33)
[2018-09-16] MEDS: SODIUM CHLORIDE FLUSH 10ML SYR IVF SCH ×2 (09:34→21:15)
[2018-09-16] MEDS: LIDODERM 5% PATCH TD SCH (09:34)
[2018-09-16] MEDS: FERROUS SULFATE 325 MG TABLET PO SCH ×2 (09:34→17:09)
[2018-09-16] MEDS: MULTIVITAMIN 1 TABLET PO SCH (09:34)
[2018-09-16] MEDS: GABAPENTIN 300 MG CAPSULE PO PRN ×2 (09:34→17:09)
[2018-09-16 14:55] VITALS: BP 102/62
[2018-09-16 20:26] VITALS: BP 93/62
[2018-09-16] MEDS: LIDODERM REMOVE PATCH NOTE XX SCH (21:00)
[2018-09-16] MEDS ORDERED: DIPHENHYDRAMINE 25 MG CAPSULE PO ONE (22:00)
[2018-09-17] VITALS (8 sets, daily range): BP systolic 90–134; BP diastolic 46–71
[2018-09-17] MEDS: GABAPENTIN 300 MG CAPSULE PO PRN ×2 (01:48→13:58)
[2018-09-17] MEDS: PANTOPROZOLE 40MG TABLET PO SCH ×2 (05:17→16:44)
[2018-09-17] MEDS: METOPROLOL TARTRATE 50 MG TABLET PO SCH ×2 (05:17→18:40)
[2018-09-17 06:15] LABS: ALBUMIN 2.1 g/dL (3.4-5.0); ANION GAP 5 mmol/L (5-15); CHLORIDE 94 mmol/L (98-107)
[2018-09-17 06:16] LABS: CREATININE 5.63 mg/dL (0.55-1.02)
[2018-09-17 06:19] LABS: MEAN CORPUSCULAR HEMOGLOBIN 29.7 pg (27.0-34.8); MEAN CORPUSCULAR VOLUME 89.9 fL (80-100); MEAN PLATELET VOLUME 8.2 fL (7.4-10.4); PLATELET COUNT 169 x10^3/uL (130-400); RED BLOOD COUNT 2.38 x10^6/uL (3.82-5.3); RED CELL DISTRIBUTION WIDTH 16.8 % (9.6-15.2)
[2018-09-17 06:43] LABS: BASOPHILS # (AUTO) 0.02 x10^3/uL (0-0.1); BASOPHILS % (AUTO) 1 % (0-1); EOSINOPHILS # (AUTO) 0.41 x10^3/uL (0-0.4); EOSINOPHILS % (AUTO) 11 % (1-7); LYMPHOCYTES # (AUTO) 1.02 x10^3/uL (1-3.4); LYMPHOCYTES % (AUTO) 28 % (22-44); MD SCAN; MONOCYTES # (AUTO) 0.55 x10^3/uL (0.2-0.8); MONOCYTES % (AUTO) 15 % (2-9); NEUTROPHILS # (AUTO) 1.69 x10^3/uL (1.8-6.8); NEUTROPHILS % (AUTO) 46 % (42-75)
[2018-09-17] MEDS: INSULIN LISPRO 100 UNITS/ML, PEN SQ-INSULIN SCH ×4 (07:00→21:00)
[2018-09-17] MEDS: SENNA/DOCUSATE TABLET PO SCH (09:00)
[2018-09-17] MEDS: ASCORBIC ACID 500 MG TABLET PO SCH (12:25)
[2018-09-17] MEDS: MULTIVITAMIN 1 TABLET PO SCH (12:25)
[2018-09-17] MEDS: CALCIUM/VITAMIN D3 250-125 TABLET PO SCH ×2 (12:25→21:24)
[2018-09-17] MEDS: FERROUS SULFATE 325 MG TABLET PO SCH ×2 (12:26→16:44)
[2018-09-17] MEDS: SODIUM CHLORIDE FLUSH 10ML SYR IVF SCH ×2 (12:26→21:25)
[2018-09-17] MEDS: LIDODERM 5% PATCH TD SCH (12:26)
[2018-09-17] MEDS: OXYcodone/APAP 5/325MG TABLET PO PRN (13:58)
[2018-09-17] MEDS: ARANESP 100 MCG/ML **ESRD SQ SCH (13:58)
[2018-09-17] MEDS: LIDODERM REMOVE PATCH NOTE XX SCH (21:00)
[2018-09-18 02:00] VITALS: BP 106/68
[2018-09-18] MEDS: OXYcodone/APAP 5/325MG TABLET PO PRN ×2 (03:40→12:20)
[2018-09-18 05:29] VITALS: BP 102/64
[2018-09-18] MEDS: PANTOPROZOLE 40MG TABLET PO SCH (05:29)
[2018-09-18] MEDS: GABAPENTIN 300 MG CAPSULE PO PRN (05:30)
[2018-09-18] MEDS: METOPROLOL TARTRATE 50 MG TABLET PO SCH (05:30)
[2018-09-18 05:44] LABS: MEAN CORPUSCULAR HEMOGLOBIN 29.9 pg (27.0-34.8); MEAN CORPUSCULAR HGB CONC 33.9 g/dL (32.4-35.8); MEAN CORPUSCULAR VOLUME 88.3 fL (80-100); MEAN PLATELET VOLUME 8.4 fL (7.4-10.4); PLATELET COUNT 165 x10^3/uL (130-400); RED BLOOD COUNT 2.54 x10^6/uL (3.82-5.3); RED CELL DISTRIBUTION WIDTH 17.5 % (9.6-15.2)
[2018-09-18 06:56] LABS: BASOPHILS # (AUTO) 0.03 x10^3/uL (0-0.1); BASOPHILS % (AUTO) 1 % (0-1); EOSINOPHILS # (AUTO) 0.43 x10^3/uL (0-0.4); EOSINOPHILS % (AUTO) 10 % (1-7); LYMPHOCYTES # (AUTO) 0.85 x10^3/uL (1-3.4); LYMPHOCYTES % (AUTO) 20 % (22-44); MD SCAN; MONOCYTES # (AUTO) 0.57 x10^3/uL (0.2-0.8); MONOCYTES % (AUTO) 13 % (2-9); NEUTROPHILS # (AUTO) 2.38 x10^3/uL (1.8-6.8); NEUTROPHILS % (AUTO) 56 % (42-75)
[2018-09-18] MEDS: INSULIN LISPRO 100 UNITS/ML, PEN SQ-INSULIN SCH ×3 (07:00→16:00)
[2018-09-18 07:35] LABS: ANION GAP 5 mmol/L (5-15); CALCIUM 7.9 mg/dL (8.5-10.1); CHLORIDE 95 mmol/L (98-107); CREATININE 4.84 mg/dL (0.55-1.02)
[2018-09-18] MEDS: SENNA/DOCUSATE TABLET PO SCH (08:35)
[2018-09-18 08:43] VITALS: BP 94/59
[2018-09-18] MEDS: FERROUS SULFATE 325 MG TABLET PO SCH (08:54)
[2018-09-18] MEDS: MULTIVITAMIN 1 TABLET PO SCH (08:54)
[2018-09-18] MEDS: ASCORBIC ACID 500 MG TABLET PO SCH (08:54)
[2018-09-18] MEDS: SODIUM CHLORIDE FLUSH 10ML SYR IVF SCH (08:55)
[2018-09-18] MEDS: CALCIUM/VITAMIN D3 250-125 TABLET PO SCH (08:55)
[2018-09-18] MEDS: ONDANSETRON ODT 4 MG PO PRN (11:41)
[2018-09-18] MEDS ORDERED: CYCL-259 PO (12:07)
[2018-09-18] MEDS ORDERED: INSU100I11 SQ-INSULIN (12:07)
[2018-09-18] MEDS ORDERED: METO50TA82 PO (12:07)
[2018-09-18] MEDS ORDERED: GABA300C10 PO (12:07)
[2018-09-18] MEDS ORDERED: LIDO700A20 TD (12:07)
[2018-09-18] MEDS ORDERED: PANT40TA5 PO (12:07)
[2018-09-18] MEDS: LIDODERM 5% PATCH TD SCH (12:12)
[2018-09-18 15:23] VITALS: BP 105/41
== END 2018-09-18 17:14 | DRG 280 ==
LOC: ED 23:34 → EDIP 23:35 → 5SO 08-26 01:56 → 4WST 08-26 12:14 → 4EST 09-16 01:34
PROVIDERS: ADMIT Family Medicine; ATTEND Family Medicine
PROC: 5A1D70Z Performance of Urinary Filtration, Intermittent, Less than 6 Hours Per Day (ICD-10-PCS; 2018-08-26)
PROC: 0T9B70Z Drainage of Bladder with Drainage Device, Via Natural or Artificial Opening (ICD-10-PCS; 2018-08-26)
PROC: 5A1D70Z Performance of Urinary Filtration, Intermittent, Less than 6 Hours Per Day (ICD-10-PCS; 2018-08-27)
PROC: 5A1D70Z Performance of Urinary Filtration, Intermittent, Less than 6 Hours Per Day (ICD-10-PCS; 2018-08-29)
PROC: 5A1D70Z Performance of Urinary Filtration, Intermittent, Less than 6 Hours Per Day (ICD-10-PCS; 2018-09-01)
PROC: 5A1D70Z Performance of Urinary Filtration, Intermittent, Less than 6 Hours Per Day (ICD-10-PCS; 2018-09-03)
PROC: 5A1D70Z Performance of Urinary Filtration, Intermittent, Less than 6 Hours Per Day (ICD-10-PCS; 2018-09-05)
PROC: 5A1D70Z Performance of Urinary Filtration, Intermittent, Less than 6 Hours Per Day (ICD-10-PCS; 2018-09-08)
PROC: 30233N1 Transfusion of Nonautologous Red Blood Cells into Peripheral Vein, Percutaneous Approach (ICD-10-PCS; 2018-09-09)
PROC: 5A1D70Z Performance of Urinary Filtration, Intermittent, Less than 6 Hours Per Day (ICD-10-PCS; 2018-09-10)
PROC: 5A1D70Z Performance of Urinary Filtration, Intermittent, Less than 6 Hours Per Day (ICD-10-PCS; 2018-09-12)
PROC: 5A1D70Z Performance of Urinary Filtration, Intermittent, Less than 6 Hours Per Day (ICD-10-PCS; 2018-09-15)
PROC: 5A1D70Z Performance of Urinary Filtration, Intermittent, Less than 6 Hours Per Day (ICD-10-PCS; principal; 2018-09-17)
DX: I21.4 Non-ST elevation (NSTEMI) myocardial infarction (principal); N18.6 End stage renal disease; E43 Unspecified severe protein-calorie malnutrition; I50.33 Acute on chronic diastolic (congestive) heart failure; I13.2 Hypertensive heart and chronic kidney disease with heart failure and with stage 5 chronic kidney disease, or end stage renal disease; M62.82 Rhabdomyolysis; E87.1 Hypo-osmolality and hyponatremia; N39.0 Urinary tract infection, site not specified; K92.2 Gastrointestinal hemorrhage, unspecified; R18.8 Other ascites; D68.59 Other primary thrombophilia; I48.92 Unspecified atrial flutter; Z68.42 Body mass index [BMI] 45.0-49.9, adult; Z99.2 Dependence on renal dialysis; E11.22 Type 2 diabetes mellitus with diabetic chronic kidney disease; E11.40 Type 2 diabetes mellitus with diabetic neuropathy, unspecified; Z79.4 Long term (current) use of insulin; E66.01 Morbid (severe) obesity due to excess calories; B96.20 Unspecified Escherichia coli [E. coli] as the cause of diseases classified elsewhere; I48.0 Paroxysmal atrial fibrillation; E87.5 Hyperkalemia; Z91.14 Patient's other noncompliance with medication regimen; Z91.19 Patient's noncompliance with other medical treatment and regimen; K76.1 Chronic passive congestion of liver; D63.1 Anemia in chronic kidney disease; G89.29 Other chronic pain; K57.90 Diverticulosis of intestine, part unspecified, without perforation or abscess without bleeding; R53.81 Other malaise; R59.9 Enlarged lymph nodes, unspecified; E78.5 Hyperlipidemia, unspecified; G89.11 Acute pain due to trauma; I25.10 Atherosclerotic heart disease of native coronary artery without angina pectoris; I48.2 Chronic atrial fibrillation; I87.2 Venous insufficiency (chronic) (peripheral); I87.8 Other specified disorders of veins; J32.0 Chronic maxillary sinusitis; J32.2 Chronic ethmoidal sinusitis; K59.00 Constipation, unspecified; K76.0 Fatty (change of) liver, not elsewhere classified; M17.11 Unilateral primary osteoarthritis, right knee; S70.01XA Contusion of right hip, initial encounter; Z82.49 Family history of ischemic heart disease and other diseases of the circulatory system; Z83.3 Family history of diabetes mellitus; Z91.15 Patient's noncompliance with renal dialysis; Z95.5 Presence of coronary angioplasty implant and graft
CPT/HCPCS: 36415; 70450; 71045; 72110; 72192; 80048; 80053; 80069; 81001; 82040; 82272; 82550; 82553; 82728; 82962; 83036; 83540; 83550; 83735; 83880; 84100; 84439; 84443; 84484; 85014; 85018; 85025; 85610; 85730; 86850; 86900; 86923; 87077; 87086; 87186; 93005; 93970; 96374; 99285; C8929; G0378; J0696; J0882; J1644; J1940; J7198; Q0162; Q9957; C9113; J1815; P9016; Q0163

== ENCOUNTER 2018-09-19 17:51 | Inpatient (IN) | payer MEDICAID ==
[~2018-09-19] VITALS: Ht 165.1 cm; Wt 135.8 kg
[~2018-09-19 17:51] MED LIST changes: +CYCL-259 PO; +LIDO700A20 TD; +METO50TA82 PO
[2018-09-19] MEDS ORDERED: METOPROLOL 1 MG/ML, 5ML IVPush ONE (18:30)
[2018-09-19] MEDS ORDERED: SODIUM CHLORIDE FLUSH 10ML SYR IVF ONE (18:30)
[2018-09-19] MEDS ORDERED: HYDROcodone/APAP 5/325 TABLET PO ONE (18:30)
[2018-09-19] MEDS ORDERED: METOPROLOL 1 MG/ML, 5ML ONE (18:42)
[2018-09-19] MEDS ORDERED: HYDROcodone/APAP 5/325 TABLET ONE (18:43)
--- NOTE | 2018-09-19 18:51 | NUR ---
BREAK RN: PT MEDICATED FOR HIP PAIN 10/10 AND HR CONTROL. PT AWARE OF PLAN OF CARE. LAB AT BEDSIDE FOR RE-DRAW OF BLOOD CULTURE.
[2018-09-19 18:53] LABS: ALBUMIN 2.4 g/dL (3.4-5.0); ANION GAP 6 mmol/L (5-15); CALCIUM 8.3 mg/dL (8.5-10.1); CHLORIDE 96 mmol/L (98-107)
[2018-09-19 18:55] LABS: BASOPHILS # (AUTO) 0.01 x10^3/uL (0-0.1); BASOPHILS % (AUTO) 0 % (0-1); EOSINOPHILS # (AUTO) 0.25 x10^3/uL (0-0.4); EOSINOPHILS % (AUTO) 5 % (1-7); LYMPHOCYTES # (AUTO) 0.83 x10^3/uL (1-3.4); LYMPHOCYTES % (AUTO) 17 % (22-44); MD NO; MEAN CORPUSCULAR HGB CONC 33.8 g/dL (32.4-35.8); MEAN CORPUSCULAR VOLUME 88.6 fL (80-100); MEAN PLATELET VOLUME 7.9 fL (7.4-10.4); MONOCYTES # (AUTO) 0.52 x10^3/uL (0.2-0.8); MONOCYTES % (AUTO) 11 % (2-9); NEUTROPHILS # (AUTO) 3.35 x10^3/uL (1.8-6.8); NEUTROPHILS % (AUTO) 68 % (42-75); PLATELET COUNT 206 x10^3/uL (130-400); RED BLOOD COUNT 2.83 x10^6/uL (3.82-5.3); RED CELL DISTRIBUTION WIDTH 16.8 % (9.6-15.2)
[2018-09-19 18:58] LABS: ALANINE AMINOTRANSFERASE 11 U/L (12-78); ALKALINE PHOSPHATASE 152 U/L (45-117); BILIRUBIN,TOTAL 0.8 mg/dL (0.2-1.0); TROPONIN I 0.019 ng/mL (0.000-0.045)
--- NOTE | 2018-09-19 19:16 | NUR ---
2 sets blood cultures drawn
[2018-09-19] MEDS ORDERED: CARVEDILOL 12.5 MG TABLET PO ONE (22:00)
[2018-09-19] MEDS ORDERED: FUROSEMIDE 40 MG/4 ML IV ONE (22:00)
[2018-09-19] MEDS ORDERED: CARVEDILOL 3.125 MG TABLET ONE (22:02)
[2018-09-19] MEDS ORDERED: FUROSEMIDE 40 MG/4 ML ONE (22:02)
[2018-09-19] MEDS ORDERED: morphine SULFATE 10 MG/ML, 1ML IVPush PRN (23:00)
[2018-09-19] MEDS ORDERED: ONDANSETRON 2MG/ML, 2ML IVPush PRN (23:00)
[2018-09-20] VITALS: BP 95/61
[2018-09-20 01:10] VITALS: BP 97/63
[2018-09-20 04:34] LABS: BASOPHILS # (AUTO) 0.02 x10^3/uL (0-0.1); BASOPHILS % (AUTO) 0 % (0-1); EOSINOPHILS % (AUTO) 5 % (1-7); LYMPHOCYTES # (AUTO) 0.88 x10^3/uL (1-3.4); LYMPHOCYTES % (AUTO) 21 % (22-44); MD NO; MEAN CORPUSCULAR HEMOGLOBIN 30.3 pg (27.0-34.8); MEAN CORPUSCULAR VOLUME 89.3 fL (80-100); MEAN PLATELET VOLUME 7.8 fL (7.4-10.4); MONOCYTES # (AUTO) 0.57 x10^3/uL (0.2-0.8); MONOCYTES % (AUTO) 13 % (2-9); NEUTROPHILS # (AUTO) 2.61 x10^3/uL (1.8-6.8); NEUTROPHILS % (AUTO) 61 % (42-75); PLATELET COUNT 193 x10^3/uL (130-400); RED BLOOD COUNT 2.49 x10^6/uL (3.82-5.3); RED CELL DISTRIBUTION WIDTH 17.5 % (9.6-15.2)
[2018-09-20 04:36] LABS: ANION GAP 5 mmol/L (5-15); CALCIUM 8.4 mg/dL (8.5-10.1); CHLORIDE 99 mmol/L (98-107)
[2018-09-20 06:17] VITALS: BP 94/64
[2018-09-20] MEDS: METOPROLOL TARTRATE 50 MG TABLET PO SCH ×2 (06:17→19:15)
[2018-09-20 06:45] VITALS: BP 100/64
[2018-09-20] MEDS: INSULIN LISPRO 100 UNITS/ML, PEN SQ-INSULIN SCH ×4 (07:00→21:48)
[2018-09-20 10:03] LABS: BASOPHILS # (AUTO) 0.01 x10^3/uL (0-0.1); BASOPHILS % (AUTO) 0 % (0-1); EOSINOPHILS # (AUTO) 0.24 x10^3/uL (0-0.4); EOSINOPHILS % (AUTO) 6 % (1-7); LYMPHOCYTES # (AUTO) 0.99 x10^3/uL (1-3.4); LYMPHOCYTES % (AUTO) 24 % (22-44); MD NO; MEAN CORPUSCULAR HEMOGLOBIN 28.8 pg (27.0-34.8); MEAN CORPUSCULAR HGB CONC 32.1 g/dL (32.4-35.8); MEAN CORPUSCULAR VOLUME 89.7 fL (80-100); MEAN PLATELET VOLUME 7.7 fL (7.4-10.4); MONOCYTES # (AUTO) 0.62 x10^3/uL (0.2-0.8); MONOCYTES % (AUTO) 15 % (2-9); NEUTROPHILS # (AUTO) 2.28 x10^3/uL (1.8-6.8); NEUTROPHILS % (AUTO) 55 % (42-75); PLATELET COUNT 194 x10^3/uL (130-400); RED CELL DISTRIBUTION WIDTH 17.6 % (9.6-15.2)
[2018-09-20 13:00] VITALS: BP 98/64
[2018-09-20] MEDS ORDERED: ACETAMINOPHEN 325 MG TABLET PO PRN (16:00)
[2018-09-20] MEDS: DIPHENHYDRAMINE 25 MG CAPSULE PO PRN (16:12)
[2018-09-20 19:03] VITALS: BP 101/64
[2018-09-21 01:08] VITALS: BP 95/62
[2018-09-21] MEDS ORDERED: HYDROcodone/APAP 10/325 MG TABLET PO ONE (02:30)
[2018-09-21 05:53] VITALS: BP 104/66
[2018-09-21] MEDS: METOPROLOL TARTRATE 50 MG TABLET PO SCH (05:54)
[2018-09-21] MEDS: INSULIN LISPRO 100 UNITS/ML, PEN SQ-INSULIN SCH ×4 (07:00→20:20)
[2018-09-21 07:08] VITALS: BP 104/63
[2018-09-21 07:43] LABS: ANION GAP 6 mmol/L (5-15); CALCIUM 8.4 mg/dL (8.5-10.1); CHLORIDE 97 mmol/L (98-107); CREATININE 4.32 mg/dL (0.55-1.02)
[2018-09-21 07:58] LABS: MEAN CORPUSCULAR HEMOGLOBIN 29.2 pg (27.0-34.8); MEAN CORPUSCULAR HGB CONC 32.8 g/dL (32.4-35.8); MEAN PLATELET VOLUME 8.1 fL (7.4-10.4); PLATELET COUNT 223 x10^3/uL (130-400); RED BLOOD COUNT 2.44 x10^6/uL (3.82-5.3)
[2018-09-21 08:24] LABS: BASOPHILS # (AUTO) 0.02 x10^3/uL (0-0.1); BASOPHILS % (AUTO) 1 % (0-1); EOSINOPHILS % (AUTO) 9 % (1-7); LYMPHOCYTES # (AUTO) 1.12 x10^3/uL (1-3.4); LYMPHOCYTES % (AUTO) 26 % (22-44); MD MORPH REVIEW ONLY; MONOCYTES # (AUTO) 0.53 x10^3/uL (0.2-0.8); MONOCYTES % (AUTO) 12 % (2-9); NEUTROPHILS # (AUTO) 2.23 x10^3/uL (1.8-6.8); NEUTROPHILS % (AUTO) 52 % (42-75)
[2018-09-21 08:25] LABS: <PLATELET ESTIMATE> ADEQUATE; <PLT MORPHOLOGY> NORMAL PLT MORPH; ANISOCYTOSIS 1+; POLYCHROMASIA 1+
[2018-09-21] MEDS ORDERED: FUROSEMIDE 40 MG/4 ML IV ONE (09:30)
[2018-09-21] MEDS: HYDROcodone/APAP 5/325 TABLET PO PRN ×2 (11:13→20:24)
[2018-09-21] MEDS: DIPHENHYDRAMINE 25 MG CAPSULE PO PRN (14:03)
[2018-09-21 14:12] VITALS: BP 89/54
[2018-09-21 15:14] VITALS: BP 105/63
[2018-09-21] MEDS: HEPARIN 5,000 UNITS/ML, 1ML SQ SCH (17:00)
[2018-09-21 20:26] VITALS: BP 124/68
[2018-09-22 00:30] VITALS: BP 134/75
[2018-09-22] MEDS: HYDROcodone/APAP 5/325 TABLET PO PRN (03:13)
[2018-09-22] MEDS: HEPARIN 5,000 UNITS/ML, 1ML SQ SCH ×2 (05:00→15:49)
[2018-09-22] MEDS: INSULIN LISPRO 100 UNITS/ML, PEN SQ-INSULIN SCH ×3 (07:00→15:53)
[2018-09-22 07:03] VITALS: BP 145/68
[2018-09-22 09:03] LABS: ANION GAP 6 mmol/L (5-15); CALCIUM 8.5 mg/dL (8.5-10.1); CHLORIDE 95 mmol/L (98-107); CREATININE 4.59 mg/dL (0.55-1.02)
[2018-09-22 09:21] LABS: MEAN CORPUSCULAR HEMOGLOBIN 29.4 pg (27.0-34.8); MEAN CORPUSCULAR HGB CONC 33.1 g/dL (32.4-35.8); MEAN PLATELET VOLUME 7.9 fL (7.4-10.4); PLATELET COUNT 229 x10^3/uL (130-400); RED BLOOD COUNT 2.29 x10^6/uL (3.82-5.3); RED CELL DISTRIBUTION WIDTH 17.2 % (9.6-15.2)
[2018-09-22 09:51] VITALS: BP 107/55
[2018-09-22 10:12] LABS: BASOPHILS # (AUTO) 0.03 x10^3/uL (0-0.1); BASOPHILS % (AUTO) 1 % (0-1); EOSINOPHILS # (AUTO) 0.34 x10^3/uL (0-0.4); EOSINOPHILS % (AUTO) 7 % (1-7); LYMPHOCYTES # (AUTO) 0.96 x10^3/uL (1-3.4); LYMPHOCYTES % (AUTO) 21 % (22-44); MD SCAN; MONOCYTES % (AUTO) 11 % (2-9); NEUTROPHILS # (AUTO) 2.84 x10^3/uL (1.8-6.8); NEUTROPHILS % (AUTO) 61 % (42-75)
[2018-09-22 10:15] VITALS: BP 122/63
[2018-09-22 10:28] VITALS: BP 122/63
[2018-09-22] MEDS ORDERED: POLYETHYLENE GLYCOL 17 GM PACKET ONE (12:19)
[2018-09-22] MEDS ORDERED: POLYETHYLENE GLYCOL 17 GM PACKET PO PRN (12:30)
[2018-09-22 15:14] VITALS: BP 113/69
[2018-09-22] MEDS ORDERED: GABA-826 PO (15:28)
== END 2018-09-22 17:35 | DRG 291 ==
LOC: ED 18:10 → EDIP 21:51 → 4WST 22:46
PROVIDERS: ADMIT Internal Medicine; ATTEND Internal Medicine
PROC: 5A1D70Z Performance of Urinary Filtration, Intermittent, Less than 6 Hours Per Day (ICD-10-PCS; principal; 2018-09-22)
PROC: 30233N1 Transfusion of Nonautologous Red Blood Cells into Peripheral Vein, Percutaneous Approach (ICD-10-PCS; 2018-09-22)
DX: I13.2 Hypertensive heart and chronic kidney disease with heart failure and with stage 5 chronic kidney disease, or end stage renal disease (principal); G92 Toxic encephalopathy; I50.33 Acute on chronic diastolic (congestive) heart failure; N18.6 End stage renal disease; I48.92 Unspecified atrial flutter; J84.9 Interstitial pulmonary disease, unspecified; Z68.42 Body mass index [BMI] 45.0-49.9, adult; E87.8 Other disorders of electrolyte and fluid balance, not elsewhere classified; D63.1 Anemia in chronic kidney disease; E11.22 Type 2 diabetes mellitus with diabetic chronic kidney disease; E66.9 Obesity, unspecified; E78.5 Hyperlipidemia, unspecified; G89.29 Other chronic pain; I48.0 Paroxysmal atrial fibrillation; L89.90 Pressure ulcer of unspecified site, unspecified stage; M81.0 Age-related osteoporosis without current pathological fracture; N25.0 Renal osteodystrophy; Z79.899 Other long term (current) drug therapy; Z91.15 Patient's noncompliance with renal dialysis; Z91.19 Patient's noncompliance with other medical treatment and regimen; Z99.2 Dependence on renal dialysis; Z90.49 Acquired absence of other specified parts of digestive tract; Z88.5 Allergy status to narcotic agent; Z88.6 Allergy status to analgesic agent; Z88.2 Allergy status to sulfonamides
CPT/HCPCS: 36415; 70450; 71045; 80048; 80053; 82962; 83605; 83735; 83880; 84100; 84484; 85025; 86850; 86900; 86923; 87040; 93005; G0378; J1940; P9016; Q0163

== ENCOUNTER 2018-12-03 10:59 | Inpatient (IN) | payer MEDICAID ==
[~2018-12-03] VITALS: Ht 165.1 cm; Wt 148.3 kg
[2018-12-10 07:59] VITALS: BP 136/81
== END 2018-12-10 14:45 ==
LOC: ED 11:42 → EDIP 13:27 → 4WST 14:13
PROVIDERS: ADMIT Internal Medicine; ATTEND Internal Medicine
PROC: 5A1D70Z Performance of Urinary Filtration, Intermittent, Less than 6 Hours Per Day (ICD-10-PCS; 2018-12-03)
PROC: 0W9G3ZZ Drainage of Peritoneal Cavity, Percutaneous Approach (ICD-10-PCS; principal; 2018-12-04)
PROC: 5A1D70Z Performance of Urinary Filtration, Intermittent, Less than 6 Hours Per Day (ICD-10-PCS; 2018-12-04)
PROC: 5A1D70Z Performance of Urinary Filtration, Intermittent, Less than 6 Hours Per Day (ICD-10-PCS; 2018-12-06)
PROC: 5A1D70Z Performance of Urinary Filtration, Intermittent, Less than 6 Hours Per Day (ICD-10-PCS; 2018-12-07)
PROC: 5A1D70Z Performance of Urinary Filtration, Intermittent, Less than 6 Hours Per Day (ICD-10-PCS; 2018-12-09)
DX: R18.8 Other ascites (principal); I13.2 Hypertensive heart and chronic kidney disease with heart failure and with stage 5 chronic kidney disease, or end stage renal disease; G93.41 Metabolic encephalopathy; E11.22 Type 2 diabetes mellitus with diabetic chronic kidney disease; D68.69 Other thrombophilia; R53.2 Functional quadriplegia; N18.6 End stage renal disease; E66.01 Morbid (severe) obesity due to excess calories; K76.0 Fatty (change of) liver, not elsewhere classified; E87.1 Hypo-osmolality and hyponatremia; I48.0 Paroxysmal atrial fibrillation; D63.1 Anemia in chronic kidney disease; G89.29 Other chronic pain; I25.10 Atherosclerotic heart disease of native coronary artery without angina pectoris; E78.5 Hyperlipidemia, unspecified; I87.8 Other specified disorders of veins; I50.32 Chronic diastolic (congestive) heart failure; K59.00 Constipation, unspecified; Z82.49 Family history of ischemic heart disease and other diseases of the circulatory system; Z79.4 Long term (current) use of insulin; Z91.15 Patient's noncompliance with renal dialysis; Z91.19 Patient's noncompliance with other medical treatment and regimen; Z99.2 Dependence on renal dialysis; Z83.3 Family history of diabetes mellitus; Z87.11 Personal history of peptic ulcer disease; Z88.5 Allergy status to narcotic agent; Z88.2 Allergy status to sulfonamides; Z68.43 Body mass index [BMI] 50.0-59.9, adult
CPT/HCPCS: 36415; 49083; 71045; 74177; 80053; 82010; 82272; 82306; 82800; 82962; 83605; 83690; 83735; 83970; 84100; 85025; 85610; 86704; 86706; 86850; 86900; 86923; 87340; 90935; 93005; 99291; G0378; Q0162; P9016